=== PATIENT | male | born 1970 | race Caucasian/White ===

== ENCOUNTER 2020-12-01 15:23 | Emergency (ER) | payer MEDICARE, MEDICAID ==
[~2020-12-01] VITALS: Ht 172.7 cm; Wt 64.2 kg
--- OUTSIDE RECORDS SUMMARY | 2020-12-01 15:31 | XMS REPORT | Clinical Summary ---
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 If you d o not see the information that you expected, contact Release of Information in [facility] [email or web address] Information Management department at [phone] for further assistan ce in locating additional records.[facility] Allergies Comments Active Allergy Reactions Severity Noted Date Ketorolac HEADACHE Low 09/18/2020 Medications End Date Status Medication Sig Dispensed Refills Start Date Active clonazePAM (KLONOPIN) 0.5 Take 1 Tab by 10 Tab 5 mg tablet mouth at 7 bedtime as needed. Active Problems Not on file Encounters Care Team Description Date Type Specialty Rolly Varma MD 10/17/2020 Hospital Radiology Encounter Rolly Varma MD 10/17/2020 Hospital Anesthesia Pain Encounter 10/17/2020 Travel Rolly Varma MD Canceled (Patient-Personal) 10/03/2020 Hospital Anesthesia Pain Encounter Rolly Varma MD Care Coordination 10/03/2020 Telephone Anesthesia Pain Evi Kirby MD 09/18/2020 Hospital Radiology Encounter Evi Kirby MD Cervical disc herniation (Primary Dx) 09/18/2020 Office Visit Neurosurgery Evi Kirby MD General Question 09/18/2020 Telephone Neurosurgery 09/18/2020 Travel Evi Kirby MD Referral (Question for patient- is he pl anning on having an appointment with Neurosurgery or Anesthesia Pain Dr? Also, ask if bringing CD of images) 09/13/2020 Telephone Neurosurgery Evi Kirby MD Disease of spinal cord (HCC) (Primary Dx ) 09/12/2020 Orders Only Neurosurgery from Last 3 Months Immunizations Name Administration Dates Next Due Surgical History Surgery Date Site/Laterality Comments KNEE ARTHROCENTESIS Medical History Medical History Date Comments Essential hypertension, benign GERD (gastroesophageal reflux disease) Family History Medical History Relation Name Comments Heart Failure Father Heart Attack Mother Heart problem Mother Hypertension Mother Relation Name Status Comments Brother Other Father Mother Sister Other Social History Date Tobacco Use Types Packs/Day Years Used Quit: 10/26/2009 Former Smoker Smokeless Tobacco: Current User Comments Alcohol Use Standard Drinks/Week Yes 0 (1 standard drink = 0.6 o z pure alcohol) Sex Assigned at Date Recorded Male 09/17/2020 7:32 AM CDT Last Filed Vital Signs Reading Time Taken Comments Vital Sign 121/97 10/17/2020 11:37 AM CDT Blood Pressure 69 09/18/2020 11:16 AM CDT Pulse 36.3 C (97.3 F) 10/17/2020 10:59 AM CDT Temperature 16 09/18/2020 11:16 AM CDT Respiratory Rate 99% 10/17/2020 11:37 AM CDT Oxygen Saturation - - Inhaled Oxygen Concentration 69.7 kg (153 lb 9.6 oz) 10/17/2020 10:59 AM CDT Weight 172.7 cm (5' 8") 10/17/2020 10:59 AM CDT Height 23.35 10/17/2020 10:59 AM CDT Body Mass Index Plan of Treatment Health Maintenance Due Date Last Done Comments MEDICARE ANNUAL WELLNESS 1970 VISIT HIV SCREENING 1985 DTAP/TDAP VACCINES (1 - 1988 Tdap) HEPATITIS C SCREENING 1988 PHYSICAL (COMPREHENSIVE) 1988 EXAM COLORECTAL CANCER 2020 SCREENING SHINGLES RECOMBINANT 2020 12/19/2019 VACCINE (2 of 2) INFLUENZA VACCINE 12/13/2020 12/19/2019, 12/26/2018 COVID-19 VACCINE Completed 07/19/2020, 06/21/2020 Procedures Comments Procedure Name Priority Date/Time Associated Diag nosis FLUORO GUIDANCE FOR SPINE Routine 10/17/2020 INJ RAD 11:35 AM CDT [facility] SPINE INJECT Routine 10/17/2020 Cervical d isc herniation SNRB/TFESI 10:45 AM CDT CERVICAL/THORACIC SCOLIOSIS EOS WHOLEBODY Routine 09/18/2020 Diseas e of spinal cord 11:11 AM CDT ([facility]) from Last 3 Months Results * FLUORO GUIDANCE FOR SPINE INJ RAD (10/17/2020 11:35 AM CDT) Specimen Narrative Performed At This order has been auto finalized and does not conta in a result. [facility] Performing Organization Address City/State/ZIP Code [place] Number [facility] * [facility] SPINE INJECT SNRB/TFESI CERVICAL/THORACIC (10/17/2020 10:45 AM CDT) Narrative Performed At Rolly Varma MD 10/17/2020 12:39 PM OTHER OUTSIDE LAB [facility] SPINE INJECT SNRB/TFESI CERVICAL /THORACIC Procedure: epidural - interlaminar Laterality: n/a on 10/17/2020 11:23 AM Location: cervical [place] with imaging - C 7-T1 Consent: Consent obtained: verbal and written Consent given by: patient Risks discussed: allergic reaction, ble eding, infection, nerve damage and seizure (Headache) Alternatives discussed: no treatment Discussed with patient the purpose of t he treatment/procedure, other ways of treating my condition, including no treatment/ procedure and the risks and benefits of the alternatives. Clarence nt has decided to proceed with treatment/procedure. [place] Protocol: Relevant documents: relevant documents present and verified Test results: test results available an d properly labeled Imaging studies: imaging studies availa ble Required items: required blood products , implants, devices, and special equipment available Site marked: the operative site was lane marco a Patient identity confirmed: Patient jacqueline ntify confirmed verbally with patient. Time out: Immediately prior to procedur e a "time out" was called to verify the correct patient, procedure, equipme nt, support associate and site/side marked as required Procedures Details: Indications: pain Prep: chlorhexidine Patient position: prone Estimated Blood Loss: minimal Specimens: none Amount Injected: C7-T1: 4mL Number of Joints: 1 Approach: midline Guidance: fluoroscopy Contrast: Procedure confirmed with cont rast under live fluoroscopy. Needle and Epidural Catheter: tuohy Needle size: 18 G Injection procedure: Incremental inject ion, Negative aspiration for blood and Introduced needle Patient tolerance: Patient tolerated th e procedure well with no immediate complications. Pressure was applied, an d hemostasis was accomplished. Outcome: Pain unchanged Comments: INTERVENTIONAL PAIN MANAGEMEN T PROCEDURE REPORT Cervical Epidural Steroid Injection Date of Service: 10/17/20 Procedure Title(s): 1. C7-T1 epidural injection 2. Intraoperative fluoroscopy Attending: Rolly Varma MD Anesthesia: Local anesthetic Indications: Oscar Esquivel is a 49 y.o. male with a diagnosis of Cervical radiculopathy. The patient's h istory and physical exam were reviewed. The risks, benefits and alter natives to the procedure were discussed, and all questions were answe red to the patient's satisfaction. The patient agreed to proceed, and writ ten informed consent was obtained. Procedure in Detail: IV was started? No The patient was brought into the proced ure room and placed in the prone position on the fluoroscopy table. Hunter dard monitors were placed, and vital signs were observed throughout th e procedure. The area of the Cervical spine was prepped with 2% chlo rhexidine and draped in a sterile manner. The C7-T1 interspace was identified and marked under AP fluoroscopy. The skin and subcutaneous tissues in the ar ea were anesthetized with 1% lidocaine. An 18-gauge Tuohy epidural n eedle was directed toward the interspace under fluoroscopic guidance until the ligamentum flavum was engaged. From this point, using lateral and oblique fluoroscopic guidance, a loss of resistance technique with a g lass syringe and saline/air was used to identify entrance of the needle into the epidural space. Once an appropriate loss of resistance was obta ined, negative aspiration was confirmed and 0.5-1ml of contrast solut ion was injected. An appropriate epidurogram was noted on AP and lateral fluoroscopy with no vascular or intrathecal uptake. Then, after negative aspiration, a solu tion containing 80 mg of kenalog and 2-3 mL of preservative-free saline was easily injected. The needle was removed with a saline flush. The patien t s back was cleaned and a bandage was placed over the site of needle inse rtion. Disposition: The patient tolerated the procedure well, and there were no apparent complications. Vital signs rem ained stable througtout the procedure. The patient was taken to the recovery area where discharge instructions for the procedure were giv en. Estimated Blood Loss: Minimal Specimens: None Complications: None Performing Organization Address City/State/ZIP Code [place] OTHER OUTSIDE LAB * SCOLIOSIS EOS WHOLEBODY (09/18/2020 11:11 AM CDT) Specimen Impressions Performed At Findings/impression: [facility] RESULTS 2 images are obtained. There is bennie h the right thoracolumbar curvature without measurable scoliosis. There is neutral coronal and sagittal balance. There is no spondylolisthesis. There is mild disc degeneration at C5-C 6. There is mild diffuse thoracic disc degeneration. There is mild multilevel lumbar marginal osteophytosis without disc space narrowing or vertebral body height loss. There is heterogeneous sclerosis in the left femoral head, suggesting avascular necrosis. Small bone infarcts are prese nt in the distal left femur. There is heterogeneous lucency and scle rosis involving the distal right tibia. Two radiographic views of the right low er extremity are recommended for further evaluation. There is no gross limb length discrepan cy. #FOLLOW Findings were discussed with Dr. Rebekah champagne by Dr. De Anda by electronic message at 12:02 PM 09/18/2020. Finalized by Eh De Anda M.D. on 09/18 12:03 PM. Dictated by Eh De Anda M.D. on 09/18/2020 11:58 AM. Narrative Performed At Exam: SCOLIOSIS EOS WHOLEBODY [facility] RESULTS History: Disease of spinal cord, Neuros urgery consult Comparison: MRI cervical spine 08/16/2020 . Procedure Note Interface, Radiant Results - 09/18/2020 12:06 PM CDT Exam: SCOLIOSIS EOS WHOLEBODY History: Disease of spinal cord, Neurosurgery consult Comparison: MRI cervical spine 08/16/2020. IMPRESSION Findings/impression: 2 images are obtained. There is smooth the right thoracolumbar curvature without measurable scoliosis. There is neutral coronal and sagittal balance. There is no spondylolisthesis. There is mild disc degeneration at C5-C6. There is mild diffuse thoracic disc degeneration. There is mild multilevel lumbar marginal osteophytosis without disc space narrowing or vertebral body height loss. There is heterogeneous sclerosis in the left femoral head, suggesting avascular necrosis. Small bone infarcts are present in the distal left femur. There is heterogeneous lucency and sclerosis involving the distal right tibia. Two radiographic views of the right lower extremity are recommended for further evaluation. There is no gross limb length discrepancy. #FOLLOW Findings were discussed with Dr. Kirby by Dr. De Anda by electronic message at 12:02 PM 09/18/2020. Finalized by Eh De Anda M.D. on 09/18/2020 12:03 PM. Dictated by Eh De Anda M.D. on 09/18/2020 11:58 AM. Performing Organization Address City/State/ZIP Code [place] Number [facility] RESULTS from Last 3 Months Insurance Type Payer Benefit Subscriber ID Effective Phone Address Plan / Dates Group Medicare MEDICARE MEDICARE [id number] 2003- PART A [place] Present B [place] [id number] 2016-P MED[place]ID [id number] Advance Directives Patient Procurement Intern Explanation Type Date Recorded Advance 06/10/2016 5:34 AM Directive/DPOA
--- OUTSIDE RECORDS SUMMARY | 2020-12-01 15:31 | XMS REPORT | Encounter Summary ---
Author Author [facility] Organization [facility] Address Unknown Phone Unavailable Care Team Providers Care Record Cutter Name Role Phone Radha Wasserman RN Unavailable Unavailable Dayanara Fontenot RN Unavailable Unavailable Shyam Ruvalcaba APRN PCP Reason for Visit * Pain Authorization (Routine) Referred By Contact Referred To Contact Status Reason Specialty Diagnoses / Procedures Evi Kirby MD [address] [place] [address] [facility] [address] [place] [address] Authorized Diagnoses Cervical disc herniation P rocedures KU AMB SPINE INJECT SNRB/TFESI CERVICAL/THORACIC Encounter Details Care Team Description Date Type Department Rolly Varma MD [address] [place] [address] [phone] 10/17/2020 Hospital Pre/Post-Operative Care: Encounter [facility] [place] [address] [place] [address] Social History Date Tobacco Use Types Packs/Day Years Used Quit: 10/26/2009 Former Smoker Smokeless Tobacco: Current User Comments Alcohol Use Standard Drinks/Week Yes 0 (1 standard drink = 0.6 o z pure alcohol) Sex Assigned at Date Recorded Male 09/17/2020 7:32 AM CDT Date Recorded COVID-19 Exposure Response 10/17/2020 10:29 AM CDT In the last month, have you been in contact with No / Unsure someone who was confirmed or suspected to have Coronavirus / COVID-19? documented as of this encounter Last Filed Vital Signs Reading Time Taken Comments Vital Sign 121/97 10/17/2020 11:37 AM CDT Blood Pressure - - Pulse 36.3 C (97.3 F) 10/17/2020 10:59 AM CDT Temperature - - Respiratory Rate 99% 10/17/2020 11:37 AM CDT Oxygen Saturation - - Inhaled Oxygen Concentration 69.7 kg (153 lb 9.6 oz) 10/17/2020 10:59 AM CDT Weight 172.7 cm (5' 8") 10/17/2020 10:59 AM CDT Height 23.35 10/17/2020 10:59 AM CDT Body Mass Index documented in this encounter Functional Status Date of Assessment Functional Status Response 06/09/2016 Does the patient have a hearing impairment: No documented as of this encounter Discharge Instructions * Instructions* Son Burrows RN - 10/17/2020 10:45 AM CDT GENERAL POST PROCEDURE INSTRUCTIONS Physician: Procedure Completed Today: o Joint Injection (hip, knee, shoulder) o Cervical Epidural Steroid Injection o Cervical Transforaminal Steroid Injection o Trigger Point Injection o Caudal Epidural Steroid Injection o Pudendal Nerve Block o Other o Thoracic Epidural Steroid Injection o Lumbar Epidural Steroid Injection o Lumbar Transforaminal Steroid Injection o Facet Joint Injection o Celiac Nerve Block o Sacrococcygeal o Sacroiliac Joint Injection Important information following your procedure today: o You may drive today o If you had sedation, you may NOT drive today - Rest at home for the next 6 hours. You may then begin to resume your normal a ctivities. - DO NOT drive any vehicle, operate any power tools, drink alcohol, make any tate or decisions, or sign any legal documents for the next 12 hours. 1. Pain relief may not be immediate. It is possible you may even experience an i ncrease in pain during the first 24-48 hours followed by a gradual decrease of y our pain. 2. Though the procedure is generally safe, and complications are rare, we do ask that you be aware of any of the following: Any swelling, persistent redness, new bleeding or drainage from the site of the injection. You should not experience a severe headache. You should not run a fever over 101oF. New onset of sharp, severe back and or neck pain. New onset of upper or lower extremity numbness or weakness. New difficulty controlling bowel or bladder function after injection. New shortness of breath. If any of these occur, please call to report this occurrence to a nurse at [phone]. If you are calling after 4:00 p.m. or on weekends or holidays, jeremy jacobson call [phone] and ask to have the resident physician international broadcast music librarian for the physi gretta paged or go to your local emergency room. 3. You may experience soreness at the injection site. Ice can be applied at 20-m inute intervals for the first 24 hours. The following day you may alternate ice with heat if you are experiencing muscle tightness, otherwise continue with ice. Ice works best at decreasing pain. Avoid application of direct heat, hot showers or hot tubs today. 4. Avoid strenuous activity today. You many resume your regular activities and e xercise tomorrow. 5. Patients with diabetes may see an elevation in blood sugars for 7-10 days aft er the injection. It is important to pay close attention to your diet, check you r blood sugars daily and report extreme elevations to the physician that manages your diabetes. 6. Patients taking daily blood thinners can resume their regular dose this eveni ng. 7. It is important that you take all medications ordered by your pain physician. Taking medications as ordered is an important part of your pain care plan. If y ou cannot continue the medication plan, please notify the physician. Possible side effects to steroids that may occur: Flushing or redness of the face Irritability Fluid retention Change in women's menses Minor headache If you are unable to keep your upcoming appointment, please notify the [facility] automatic driller and reamer at [phone] at least 24 hours in advance. If you have question s for the surgery center, call [facility] at . documented in this encounter Medications at Time of Discharge Start Date End Date Medication Sig Dispensed Refills 06/10/2016 clonazePAM (KLONOPIN) 0.5 Take 1 Tab by 10 Tab 5 mg tablet mouth at bedtime as needed. documented as of this encounter Discharge Disposition Code Departure Means Destination Disposition Home Home or Self Care documented in this encounter Progress Notes * Rolly Varma MD - 10/17/2020 10:45 AM CDT SPINE CENTER INTERVENTIONAL PAIN PROCEDURE HISTORY AND PHYSICAL Cc: Neck pain HISTORY OF PRESENT ILLNESS: Patient presents today with neck pain and is here f or DEREK. Patient denies any new medical conditions or medications. Patient sta tyson they have been off of anticoagulants and antiplatelets as instructed during clinic visit. Patient denies any recent illnesses, infections, and is off of an tibiotics Medical History: Diagnosis Date Essential hypertension, benign GERD (gastroesophageal reflux disease) Surgical History: Procedure Laterality Date KNEE ARTHROCENTESIS family history includes Heart Attack in his mother; Heart Failure in his father; Heart problem in his mother; Hypertension in his mother. Social History Socioeconomic History Marital status: Spouse name: Not on file Number of children: Not on file Years of education: Not on file Highest education level: Not on file Occupational History Not on file Tobacco Use Smoking status: Former Smoker Quit date: 10/26/2009 Years since quittin.9 Smokeless tobacco: Current User Substance and Sexual Activity Alcohol use: Yes Drug use: No Sexual activity: Not on file Other Topics Concern Not on file Social History Narrative Not on file Allergies Allergen Reactions Ketorolac HEADACHE Vitals: 10/17/20 1059 BP: 114/73 BP Source: Arm, Left Upper Temp: 36.3 C (97.3 F) SpO2: 97% Weight: 69.7 kg (153 lb 9.6 oz) Height: 172.7 cm (68") REVIEW OF SYSTEMS: 14 point ROS obtained and negative except for those noted in HPI. PHYSICAL EXAM: General: Alert, cooperative, no distress Head: Normocephalic, atraumatic Eyes: Conjunctivae/corneas clear Lungs: Unlabored respirations Heart: Normal rate by palpation of pulse Abdomen: Non-distended Skin: Warm and dry to touch Psychiatric: Mood and affect normal Musculoskeletal: Moves all extremities Neurological: Grossly intact. IMPRESSION: 1. Cervical radiculopathy PLAN: Discussed risks and complications of Cervical TFESI and CORINNA. At end of discussi on, patient would like to proceed with CORINNA. Plan to proceed with C7-T1 DEREK Rolly Varma MD Department of Anesthesiology and Pain Medicine [facility] Personal Pager [phone] documented in this encounter Procedure Notes * Rolly Varma MD - 10/17/2020 10:45 AM CDT Associated Order(s): KU AMB SPINE INJECT SNRB/TFESI CERVICAL/THORACIC Pre-Procedure Diagnose(s): Cervical disc herniation KU AMB SPINE INJECT SNRB/TFESI CERVICAL/THORACIC Procedure: epidural - interlaminar Laterality: n/a on 10/17/2020 11:23 AM Location: cervical CORINNA with imaging - C7-T1 Consent: Consent obtained: verbal and written Consent given by: patient Risks discussed: allergic reaction, bleeding, infection, nerve damage and seizur e (Headache) Alternatives discussed: no treatment Discussed with patient the purpose of the treatment/procedure, other ways of kosta ating my condition, including no treatment/ procedure and the risks and benefits of the alternatives. Patient has decided to proceed with treatment/procedure. [place] Protocol: Relevant documents: relevant documents present and verified Test results: test results available and properly labeled Imaging studies: imaging studies available Required items: required blood products, implants, devices, and special equipmen t available Site marked: the operative site was marked Patient identity confirmed: Patient identify confirmed verbally with patient. Time out: Immediately prior to procedure a "time out" was called to verify the c orrect patient, procedure, equipment, whanau support worker and site/side marked as requ ired Procedures Details: Indications: pain Prep: chlorhexidine Patient position: prone Estimated Blood Loss: minimal Specimens: none Amount Injected: C7-T1: 4mL Number of Joints: 1 Approach: midline Guidance: fluoroscopy Contrast: Procedure confirmed with contrast under live fluoroscopy. Needle and Epidural Catheter: tuohy Needle size: 18 G Injection procedure: Incremental injection, Negative aspiration for blood and In troduced needle Patient tolerance: Patient tolerated the procedure well with no immediate compli cations. Pressure was applied, and hemostasis was accomplished. Outcome: Pain unchanged Comments: INTERVENTIONAL PAIN MANAGEMENT PROCEDURE REPORT Cervical Epidural Steroid Injection Date of Service: 10/17/20 Procedure Title(s): 1. C7-T1 epidural injection 2. Intraoperative fluoroscopy Attending: Rolly Varma MD Anesthesia: Local anesthetic Indications: Oscar Esquivel is a 49 y.o. male with a diagnosis of Cervical r adiculopathy. The patient's history and physical exam were reviewed. The risks, benefits and alternatives to the procedure were discussed, and all questions wer e answered to the patient's satisfaction. The patient agreed to proceed, and wri tten informed consent was obtained. Procedure in Detail: IV was started? No The patient was brought into the procedure room and placed in the prone position on the fluoroscopy table. Standard monitors were placed, and vital signs were o bserved throughout the procedure. The area of the Cervical spine was prepped wit h 2% chlorhexidine and draped in a sterile manner. The C7-T1 interspace was identified and marked under AP fluoroscopy. The skin an d subcutaneous tissues in the area were anesthetized with 1% lidocaine. An 18-ga uge Tuohy epidural needle was directed toward the interspace under fluoroscopic guidance until the ligamentum flavum was engaged. From this point, using lateral and oblique fluoroscopic guidance, a loss of resistance technique with a glass syringe and saline/air was used to identify entrance of the needle into the epid ural space. Once an appropriate loss of resistance was obtained, negative aspir ation was confirmed and 0.5-1ml of contrast solution was injected. An appropriat e epidurogram was noted on AP and lateral fluoroscopy with no vascular or intrat hecal uptake. Then, after negative aspiration, a solution containing 80 mg of kenalog and 2-3 mL of preservative-free saline was easily injected. The needle was removed with a saline flush. The patients back was cleaned and a bandage was placed over t he site of needle insertion. Disposition: The patient tolerated the procedure well, and there were no apparen t complications. Vital signs remained stable througtout the procedure. The patie nt was taken to the recovery area where discharge instructions for the procedure were given. Estimated Blood Loss: Minimal Specimens: None Complications: None documented in this encounter Plan of Treatment Not on filedocumented as of this encounter Procedures Comments Procedure Name Priority Date/Time Associated Diag nosis KU AMB SPINE INJECT Routine 10/17/2020 Cervical d isc herniation SNRB/TFESI 10:45 AM CDT CERVICAL/THORACIC documented in this encounter Visit Diagnoses Diagnosis Cervical radiculopathy - Primary Brachial neuritis or radiculitis nos documented in this encounter Orders First Ordered Date Medications Ordered That Might Not Have Count Last Ordered Date Been Administered iohexoL (OMNIPAQUE-300) 300 mg/mL 1 07/2020 injection 2 mL lidocaine PF 1% (10 mg/mL) injection 2 1 10/17/2020 mL triamcinolone acetonide (KENALOG-40) 1 0 10/17/2020 injection 80 mg documented in this encounter Additional Health Concerns Assessment Noted Time A fall risk assessment has been completed for the pat ient 09/18/2020 11:23 AM CDT PHQ-2 Depression Total Score: 0 09/18/2020 11:23 AM CDT documented as of this encounter
--- OUTSIDE RECORDS SUMMARY | 2020-12-01 15:31 | XMS REPORT | Encounter Summary ---
Author Author [facility] Organization [facility] Address Unknown Phone Unavailable Care Team Providers Care Custom Home Installer Name Role Phone Radha Wasserman RN Unavailable Unavailable Dayanara Fontenot RN Unavailable Unavailable Shyam Ruvalcaba APRN PCP Encounter Details Care Team Description Date Type Department 10/17/2020 Travel Social History Date Tobacco Use Types Packs/Day [...] / COVID-19? documented as of this encounter Functional Status Date of Assessment Functional Status Response 06/09/2016 Does the patient have a hearing impairment: No documented as of this encounter Plan of Treatment Not on filedocumented as of this encounter Visit Diagnoses Not on filedocumented in this encounter Additional Health Concerns Assessment Noted Time A fall risk assessment has been completed for the pat ient 09/18/2020 11:23 AM CDT PHQ-2 Depression Total Score: 0 09/18/2020 11:23 AM CDT documented as of this encounter
--- OUTSIDE RECORDS SUMMARY | 2020-12-01 15:31 | XMS REPORT | Encounter Summary ---
Author Author [facility] Organization [facility] Address Unknown Phone Unavailable Care Team Providers Care Feed House Supervisor Name Role Phone Radha Wasserman RN Unavailable Unavailable Dayanara Fontenot RN Unavailable Unavailable Shyam Ruvalcaba APRN PCP Reason for Visit * Reason Onset Date Comments Care Coordination 10/03/2020 Encounter Details Care Team Description Date Type Department Rolly Varma MD [address] [place] [address] [phone] Care Coordination 10/03/2020 Telephone Comp Spine Ctr Intervent'nl Pain: [facility]: [address] [place] [address] Social History Date Tobacco Use Types Packs/Day Years Used Quit: 10/26/2009 Former Smoker Smokeless Tobacco: Current User Comments Alcohol Use Standard Drinks/Week Yes 0 (1 standard drink = 0.6 o z pure alcohol) Sex Assigned at Date Recorded Male 09/17/2020 7:32 AM CDT Date Recorded COVID-19 Exposure Response 09/18/2020 10:51 AM CDT In the last month, have you been in contact with No / Unsure someone who was confirmed or suspected to have Coronavirus / COVID-19? documented as of this encounter Functional Status Date of Assessment Functional Status Response 06/09/2016 Does the patient have a hearing impairment: No documented as of this encounter Miscellaneous Notes * Telephone Encounter - Alecia Alcaraz RN - 10/03/2020 3:23 PM CDT Patient was planned for procedure at 10:30am today VM from patient's caregiver at 10:54am today stating that she had a in the family and she spaced about when patient is not supposed to eat or drink anythi ng 6hrs prior and he had water and toast and PB&J Per chart review patient has already been rescheduled for 10/17/2020 documented in this encounter Plan of Treatment [...]
--- OUTSIDE RECORDS SUMMARY | 2020-12-01 15:31 | XMS REPORT | Encounter Summary ---
Author Author [facility] Organization [facility] Address Unknown Phone Unavailable Care Team Providers Care College Basketball Coach Name Role Phone Radha Wasserman RN Unavailable Unavailable Dayanara Fontenot RN Unavailable Unavailable Shyam Ruvalcaba APRN PCP Reason for Visit * Pain Authorization (Routine) Referred By Contact Referred To Contact Status Reason Specialty Diagnoses / Procedures Evi Kirby MD [address] [place] [address] [facility] [address] [place] [address] Authorized Diagnoses Cervical disc herniation P rocedures KU AMB SPINE INJECT SNRB/TFESI CERVICAL/THORACIC Encounter Details Care Team Description Date Type Department Rolly Varma MD [address] [place], [place] [id number] Canceled (Patient-Personal) 10/03/2020 Hospital Pre/Post-Operative Care: Encounter [facility] [address] [place] [address] Social History Date Tobacco Use [...] of this encounter Discharge Instructions * Instructions* Myranda Tay RN - 10/03/2020 10:30 AM CDT GENERAL POST PROCEDURE INSTRUCTIONS Physician: [...] report this occurrence to a nurse at . If you are calling after 4:00 p.m. or on weekends or holidays, jeremy jacobson call [phone] and ask to have the resident physician rag production worker for the physi gretta paged or go [...] thinners can resume their regular dose this lopez escalona. 7. It is important that you take [...] appointment, please notify the [facility] artillery or naval gunfire observer at [phone] at least 24 hours in advance. If you have question s for the surgery center, call [facility] at . documented in this encounter Medications at Time of Discharge Start Date End Date Medication Sig Dispensed Refills 06/10/2016 clonazePAM (KLONOPIN) 0.5 Take 1 Tab by 10 Tab 5 mg tablet mouth at bedtime as needed. documented as of this encounter Discharge Disposition Code Departure Means Destination Disposition Home Home or Self Care documented in this encounter Plan of Treatment Not on filedocumented as of this encounter Procedures Comments Procedure Name Priority Date/Time Associated Diag nosis JOSEPHINE ZACARIAS SPINE INJECT Routine 10/17/2020 Cervical d isc herniation SNRB/TFESI 10:45 AM CDT CERVICAL/THORACIC documented in this encounter Results * KU AMB SPINE INJECT SNRB/TFESI CERVICAL/THORACIC [...] the risks and benefits of the alternatives. Patie nt has decided to proceed with treatment/procedure. [place] Protocol: Relevant documents: relevant documents present and verified Test results: test results available an d properly labeled Imaging studies: imaging studies availa ble Required items: required blood products , implants, devices, and special equipment available Site marked: the operative site was [facility] Patient identity confirmed: Patient jacqueline ntify confirmed verbally with patient. Time out: Immediately prior to procedur e a "time out" was called to verify the correct patient, procedure, equipme nt, technical support internship and site/side marked as required Procedures Details: [...] Code P melonie Number OTHER OUTSIDE LAB documented in this encounter Visit Diagnoses Not on filedocumented in this encounter Additional Health Concerns Assessment Noted Time A fall risk assessment has been completed for the pat ient 09/18/2020 11:23 AM CDT PHQ-2 Depression Total Score: 0 09/18/2020 11:23 AM CDT documented as of this encounter
--- OUTSIDE RECORDS SUMMARY | 2020-12-01 15:31 | XMS REPORT | Encounter Summary ---
Author Author [facility] Organization [facility] Address Unknown Phone Unavailable Care Team Providers Care Manager Of Pharmacy Name Role Phone Radha Wasserman RN Unavailable Unavailable Dayanara Fontenot RN Unavailable Unavailable Shyam Ruvalcaba APRN PCP Reason for Referral * Radiology Services (Routine) Referred By Contact Referred To Contact Status Reason Specialty Diagnoses / Procedures Rolly Varma MD [address] [place] [address] New Request Radiology Procedures FLUORO GUIDANCE FOR SPINE INJ RAD Electronically signed by Rolly Varma MD at Reason for Visit * Radiology Services (Routine) Referred By Contact Referred To Contact Status Reason Specialty Diagnoses / Procedures Rolly Varma MD [address] [place] [address] New Request Radiology Procedures FLUORO GUIDANCE FOR SPINE INJ RAD Encounter Details Care Team Description Date Type Department Rolly Varma MD [address] [place] [address] [phone] 10/17/2020 Hospital Imaging: Cre ek, Encounter [facility] [address] [place] [phone] Social History Date Tobacco Use Types Packs/Day [...] impairment: No documented as of this encounter Medications at Time of Discharge [...] Routine 10/17/2020 INJ RAD 11:35 AM CDT documented in this encounter Results * FLUORO GUIDANCE FOR SPINE INJ RAD (10/17/2020 11:35 AM CDT) Specimen Narrative Performed At This order has been auto finalized and does not conta in a result. HARJINDER GARCIA Performing Organization Address City/State/ZIP Code P melonie Number HARJINDER GARCIA documented in this encounter Visit Diagnoses Not on filedocumented in this encounter Additional Health Concerns Assessment Noted Time A fall risk assessment has been completed for the pat ient 09/18/2020 11:23 AM CDT PHQ-2 Depression Total Score: 0 09/18/2020 11:23 AM CDT documented as of this encounter
[2020-12-01] MEDS ORDERED: ONDANSETRON 4 MG (ZOFRAN) ORAL DISSOLVE TAB PO STA (16:35)
[2020-12-01] MEDS ORDERED: DICYCLOMINE 10 MG/ML (BENTYL) 2 ML AMP IM STA (16:35)
[2020-12-01] MEDS ORDERED: DICY20TA10 PO (16:41)
[2020-12-01] MEDS ORDERED: ONDA4TAB11 PO (16:41)
--- NOTE | 2020-12-01 16:41 | ED GI ---
General Chief Complaint: Abdominal/GI Problems Stated Complaint: ABD PAIN Nursing Triage Note: PATIENT PRESENTS TO THE ED WITH C/O ABDOMINAL CRAMPING/PAIN AND DIARRHEA. PATIENT REPORTS SEVERE ABDOMINAL CRAMPING TODAY FOR APPROXIMATELY THE LAST 1 HOUR. HE STATES HE ATE SOME BAD CELERY YESTERDAY (UNAWARE IT HAD GONE BAD) AND HAD DIARRHEA ALL NIGHT. TODAY HE REPORTS THAT HE ATE SOME MORE CELERY BUT HAD CUT OFF THE SPOILED PART AND 1 HOUR LATER HIS ABDOMINAL CRAMPING/PAIN BEGAN. DENIES DIARRHEA TODAY. Source of Information: Patient History of Present Illness Date Seen by Provider: Dec 01, 2020 Time Seen by Provider: 16:04 Initial Comments 50-year-old male presenting with complaints of abdominal cramping and diarrhea since yesterday. Last night he had a salad and used some celery but had cut off the ends that he thought were spoiled. An hour or so after eating that he started having abdominal cramping and had diarrhea persistently throughout the night. This morning he ate more of the celery and then started having cramping and pain again. He then realized that the swelling was bad and that was causing his symptoms. When he looked up food poisoning he realized that that was what was happening for him. His girlfriend had given him some Pedialyte which seemed to be helping with his stomach. He has had no vomiting but did have some nausea. He is not having diarrhea today like he was last night. After arrival in the ED his symptoms were improved and he was not having as much abdominal cramping and pain. Severity/Quality: Severe, Cramping Location: Generalized Abdomen Modifying Factors: Improves With Eating Associated Symptoms: No Back Pain, No Chest Pain, No Diaphoresis, No Fever/Chills, No Headache; Nausea/Vomiting (Some nausea but no vomiting); No Shortness of Air, No Swelling/Mass in Abdomen, No Syncope, No Weakness Allergies and Home Medications Allergies Coded Allergies: No Known Drug Allergies (Unverified , 12/01/20) Patient Home Medication List Home Medication List Reviewed: Yes Dicyclomine HCl (Dicyclomine HCl) 20 Mg Tablet, 20 MG PO QID PRN for abdominal pain/cramping Prescribed by: JOHNNY CONNELL on 12/01/20 8120 Ondansetron (Ondansetron Odt) 4 Mg Tab.rapdis, 4 MG PO Q6H PRN for NAUSEA/VOMITING Prescribed by: JOHNNY CONNELL on 12/01/20 1641 Review of Systems Review of Systems Constitutional: see HPI EENTM: No Symptoms Reported Respiratory: No Symptoms Reported Cardiovascular: No Symptoms Reported Gastrointestinal: See HPI Genitourinary: No Symptoms Reported Musculoskeletal: no symptoms reported Skin: No rash Psychiatric/Neurological: Denies Headache Past Fadlzek-Oqafrt-Frcuvk Hx Patient Social History Tobacco Use?: No Use of E-Cig and/or Vaping dev: No Substance use?: Yes Substance type: Marijuana Additional substance use comme: LAST USED 2-3 WEEKS AGO Substance frequency: Once in a while Alcohol Use?: No Pt feels they are or have been: No Immunizations Up To Date First/Initial COVID19 Vaccinat: JULY 2020 Second COVID19 Vaccination Nick: JULY 2020 COVID19 Vaccine Pharmaceutical Scientist: MAGGIE Physical Exam Vital Signs Vital Signs - First Documented 12/01/20 15:35 Temp 36.9 Pulse 84 Resp 16 B/P (MAP) 144/98 (113) Pulse Ox 98 O2 Delivery Room Air Capillary Refill : Less Than 3 Seconds Height/Weight/BMI Height: '" Weight: lbs. oz. kg; 21.00 BMI Method: General Appearance: WD/WN, no apparent distress HEENT: pharynx normal Neck: non-tender, full range of motion, supple, normal inspection Respiratory: chest non-tender, lungs clear, normal breath sounds Cardiovascular: normal peripheral pulses, regular rate, rhythm Gastrointestinal: soft, no pulsatile mass, abnormal bowel sounds (Hyperactive bowel sounds); No distended, No guarding, No rebound; tenderness (Mild diffuse tenderness to palpation) Rectal: deferred Neurologic/Psychiatric: alert, oriented x 3 Skin: normal color, warm/dry Images 1 - Mild diffuse tenderness to palpation with hyperactive bowel sounds Progress/Results/Core Measures Results/Orders My Orders Orders - JOHNNY CONNELL MD Dicyclomine Injection (Bentyl Injection) (12/01/20 16:35) Ondansetron Oral Dissolve Tab (Zofran (12/01/20 16:35) Vital Signs/I&O 12/01/20 12/01/20 15:35 16:53 Temp 36.9 36.9 Pulse 84 84 Resp 16 16 B/P (MAP) 144/98 (113) 144/98 Pulse Ox 98 98 O2 Delivery Room Air Room Air Blood Pressure Mean: 113 Progress Progress Note : Progress Note Reassured patient that his exam and vital signs stable. He did not appear to be dehydrated or that he would have to get IV fluids. Will try Zofran and Bentyl to help with the symptoms. Continue with Pedialyte or electrolyte drinks in addition to water. Follow a bland or liquid diet for the next 24 to 48 hours. Throw away the remaining celery, if he has any of the rotten celery left. Check back with clinic for continued concerns Departure Impression Primary Impression: Food poisoning Additional Impressions: Diarrhea Qualified Codes: R19.7 - Diarrhea, unspecified Abdominal cramping Disposition: HOME, SELF-CARE Condition: Stable Departure-Patient Inst. Decision time for Depature: 16:37 Referrals: NO,LOCAL PHYSICIAN (PCP) Primary Care Physician [facility] [place] Patient Instructions: Food Poisoning ED, Diarrhea, Adult ED Add. Discharge Instructions: Stay well hydrated and drink water and electrolyte drinks to help with hydration. Use the nausea medicine and medicine for abdominal cramping and pain to help with your symptoms. If you are having vomiting or diarrhea to the point that you can not keep up with hydration and are getting dizzy and light headed then return or seek medical care for further evaluation. All discharge instructions reviewed with patient and/or family. Voiced understanding. Scripts Dicyclomine HCl (Dicyclomine HCl) 20 Mg Tablet 20 MG PO QID PRN for abdominal pain/cramping for 3 Days, #12 TAB 0 Refills Prov: JOHNNY CONNELL MD 12/01/20 Ondansetron (Ondansetron Odt) 4 Mg Tab.rapdis 4 MG PO Q6H PRN for NAUSEA/VOMITING for 3 Days, #12 TAB 0 Refills Prov: JOHNNY CONNELL MD 12/01/20 JOHNNY CONNELL MD Dec 01, 2020 16:41
[2020-12-01 16:53] VITALS: BP 144/98
== END 2020-12-01 16:45 | disposition home or self-care (01) ==
LOC: ER FS 15:29
DX: A05.9 Bacterial foodborne intoxication, unspecified (principal)
CPT/HCPCS: 99284

== ENCOUNTER 2021-02-10 10:27 | Emergency (ER) | payer MEDICARE, MEDICAID ==
[~2021-02-10] VITALS: Ht 172 cm; Wt 68.0 kg
[~2021-02-10 10:27] MED LIST: DICY20TA PO; ONDA4TAB11 PO
--- NOTE | 2021-02-10 10:30 | ED Chest Pain ---
General Stated Complaint: CHEST PAIN Source: patient Exam Limitations: no limitations History of Present Illness Date Seen by Provider: Feb 10, 2021 Time Seen by Provider: 10:28 Initial Comments 50yoM with PMH of GERD coming in due to chest pain. Started a couple weeks ago. Happens most nights after dinner and laying down. Lasts a couple hours at a time before it goes away. Is a burning at times and pressure at other times. Has been on omeprazole for years. Had a GI upper scope 6 days ago which was diagnosed with esophagitis. No medication changes at that time. Pain started again last night in the middle the night and is continuing. Is moderate, constant, burning. No difficulty breathing, fever, cough, abdominal pain, nausea, v omiting, diarrhea, weakness, numbness, or any other concerns. No prior history of pulmonary embolism. No recent surgeries under general anesthesia. Allergies and Home Medications Allergies Coded Allergies: No Known Drug Allergies (Unverified , 12/01/20) Patient Home Medication List Home Medication List Reviewed: Yes Dicyclomine HCl (Dicyclomine HCl) 20 Mg Tablet, 20 MG PO QID PRN for abdominal pain/cramping Prescribed by: JOHNNY CONNELL on 12/01/20 1641 Ondansetron (Ondansetron Odt) 4 Mg Tab.rapdis, 4 MG PO Q6H PRN for NAUSEA/VOMITING Prescribed by: JOHNNY CONNELL on 12/01/20 1641 Review of Systems Review of Systems Constitutional: No chills EENTM: No Blurred Vision Respiratory: Denies Cough Cardiovascular: Chest Pain Gastrointestinal: Denies Abdominal Pain, Denies Diarrhea, Denies Nausea Genitourinary: Denies Burning Musculoskeletal: No back pain Skin: no symptoms reported Psychiatric/Neurological: No Symptoms Reported Endocrine: No Symptoms Reported Hematologic/Lymphatic: No Symptoms Reported All Other Systems Reviewed Negative Unless Noted: Yes Past Xekarxz-Drtqit-Ymxunf Hx Patient Social History Tobacco Use?: No Smoking Status: Former Smoker Use of E-Cig and/or Vaping dev: No Substance use?: No Immunizations Up To Date First/Initial COVID19 Vaccinat: JULY 2020 Second COVID19 Vaccination Nick: JULY 2020 Past Medical History Surgeries: Yes Orthopedic Physical Exam Vital Signs Vital Signs - First Documented 02/10/21 10:42 Temp 35.9 Pulse 79 Resp 20 B/P (MAP) 126/74 (91) Pulse Ox 97 O2 Delivery Room Air Capillary Refill : Height, Weight, BMI Height: '" Weight: lbs. oz. kg; 21.00 BMI Method: General Appearance: No Apparent Distress, WD/WN HEENT: PERRL/EOMI, Normal ENT Inspection, Pharynx Normal Neck: Full Range of Motion, Normal Inspection, Non Tender, Supple Respiratory: Chest Non Tender, Lungs Clear, Normal Breath Sounds, No Accessory Muscle Use, No Respiratory Distress Cardiovascular: Regular Rate, Rhythm, No Edema, Normal Peripheral Pulses Gastrointestinal: Normal Bowel Sounds, Non Tender, Soft; No Distended, No G uarding Extremity: Normal Capillary Refill, Normal Inspection, Normal Range of Motion, Non Tender, No Calf Tenderness, No Pedal Edema Neurologic/Psychiatric: Alert, No Motor/Sensory Deficits, Normal Mood/Affect Skin: Normal Color, Warm/Dry Lymphatic: No Adenopathy Progress/Results/Core Measures Results/Orders Lab Results Laboratory Tests Test 02/10/21 10:45 Range/Units White Blood Count 10.8 4.3-11.0 10^3/uL Red Blood Count 4.84 4.30-5.52 10^6/uL Hemoglobin 15.2 13.3-17.7 g/dL Hematocrit 43 40-54 % Mean Corpuscular Volume 89 80-99 fL Mean Corpuscular Hemoglobin 31 25-34 pg Mean Corpuscular Hemoglobin Concent 35 32-36 g/dL Red Cell Distribution Width 12.3 10.0-14.5 % Platelet Count 287 130-400 10^3/uL Mean Platelet Volume 10.7 9.0-12.2 fL Neutrophils (%) (Auto) 75 42-75 % Lymphocytes (%) (Auto) 17 12-44 % Monocytes (%) (Auto) 7 0-12 % Eosinophils (%) (Auto) 1 0-10 % Basophils (%) (Auto) 0 0-10 % Neutrophils # (Auto) 8.0 H 1.8-7.8 X 10^3 Lymphocytes # (Auto) 1.9 1.0-4.0 X 10^3 Monocytes # (Auto) 0.8 0.0-1.0 X 10^3 Eosinophils # (Auto) 0.1 0.0-0.3 10^3/uL Basophils # (Auto) 0.0 0.0-0.1 10^3/uL D-Dimer < 0.27 0.00-0.49 UG/ML Sodium Level 140 135-145 MMOL/L Potassium Level 3.6 3.6-5.0 MMOL/L Chloride Level 105 98-107 MMOL/L Carbon Dioxide Level 25 21-32 MMOL/L Anion Gap 10 5-14 MMOL/L Blood Urea Nitrogen 6 L 7-18 MG/DL Creatinine 0.85 0.60-1.30 MG/DL Estimat Glomerular Filtration Rate 95 BUN/Creatinine Ratio 7 Glucose Level 107 H 70-105 MG/DL Calcium Level 9.4 8.5-10.1 MG/DL Corrected Calcium 8.5-10.1 MG/DL Total Bilirubin 1.1 H 0.1-1.0 MG/DL Aspartate Amino Transf (AST/SGOT) 22 5-34 U/L Alanine Aminotransferase (ALT/SGPT) 7 0-55 U/L Alkaline Phosphatase 68 40-136 U/L Troponin I < 0.30 <0.30 NG/ML Total Protein 7.4 6.4-8.2 GM/DL Albumin 4.6 H 3.2-4.5 GM/DL My Orders Orders - FLORY GARNICA MD Cbc With Automated Diff (02/10/21 10:39) Chest 1 View Ap/Pa Only (02/10/21 10:39) Ekg Tracing (02/10/21 10:39) Comprehensive Metabolic Panel (02/10/21 10:39) Monitor-Rhythm Ecg Trace Only (02/10/21 10:39) Ed Iv/Invasive Line Start (02/10/21 10:39) Troponin I Fs (02/10/21 10:39) Lidocaine 2% Viscous 15 Ml (Xylocaine Vi (02/10/21 10:45) Antacid Suspension (Mylanta Suspension (02/10/21 10:45) Fibrin Degradation Products (02/10/21 11:24) Medications Given in ED Current Medications Medications Dose Ordered Sig/Janina Route Start Time Stop Time Status Last Admin Dose Admin Al Hydrox/Mg Hydrox/Simethicone 30 ml ONCE ONCE PO 02/10/21 10:45 02/10/21 10:46 DC 02/10/21 10:57 30 ML Lidocaine HCl 15 ml ONCE ONCE PO 02/10/21 10:45 02/10/21 10:46 DC 02/10/21 10:57 15 ML Vital Signs/I&O 02/10/21 10:42 Temp 35.9 Pulse 79 Resp 20 B/P (MAP) 126/74 (91) Pulse Ox 97 O2 Delivery Room Air Progress Progress Note : Progress Note 50-year-old male with above history coming in due to central chest burning pain. ABCs were intact and vitals were stable on presentation. Physical exam reassuring with no focal abnormalities including normal distal pulses that are equal, normal neuro exam, and no clinical signs of a DVT. EKG ordered and interpreted by me without any acute ST changes, no prior EKG to compare to, he is also sinus rhythm with a rate of 80. Chest x-ray ordered and interpreted by me showing a pleural effusion on the right that is mild, no infiltrate concerning for pneumonia, no pneumothorax, normal cardiac silhouette, no free air under the diaphragm. Labs significant for negative troponin, undetectable D-dimer, normal creatinine, normal electrolytes essentially. I discussed with the patient the pleural effusion is unusual, but we do not have any prior to compare to. I recommended given it is mild with normal vitals that he should follow-up with his primary care doctor and have a repeat chest x-ray to ensure it is improving. They can also decide how much they want a work-up the cause of the pleural effusion. Overall this seems to be more benign cause of chest discomfort, and clinically it does sound like esophagitis given this was just diagnosed, and the symptoms of burning especially when laying down at night. I believe he is stable for discharge. He was sent home with strict return precautions Initial ECG Impression Date: Feb 10, 2021 Initial ECG Impression Time: 10:27 Initial ECG Rate: 80 Initial ECG Rhythm: Normal Sinus Comment Narrow QRS, normal axis, no significant ST changes, T wave flattening in the high lateral leads with no prior EKG to compare to Diagnostic Imaging Diagonstic Imaging: Xray Plain Films/CT/US/NM/MRI: chest Comments [facility], [facility]. [place], [place] NAME: JONATHAN BARRAZA [facility] REC#: [id number] PT STATUS: REG ER : 1970 PHYSICIAN: FLORY GARNICA MD ADMIT DATE: 02/10/21/ER FS Signed Date of Exam:02/10/21 CHEST 1 VIEW AP/PA ONLY EXAMINATION: Chest 1 view HISTORY: chest pain, recent GI scope COMPARISON: None available. FINDINGS: Heart size and pulmonary vasculature are normal. There is a right pleural effusion. No consolidation or pneumothorax. The osseous structures are intact. IMPRESSION: 1. Findings suggestive of a right pleural effusion versus asymmetric elevation of the right hemidiaphragm. No other acute radiographic abnormality in the chest. Dictated by: Dictated on workstation # [id number] Dict: 02/10/21 1052 Trans: 02/10/21 105 AS6 [id number] Interpreted by: JAMIL PATRICK DO Electronically signed by: JAMIL PATRICK DO 02/10/211057 Departure Impression Primary Impression: Pleural effusion Additional Impressions: Chest pain Qualified Codes: R07.9 - Chest pain, unspecified Esophagitis Disposition: HOME, SELF-CARE Condition: Stable Departure-Patient Inst. Decision time for Depature: 12:11 Referrals: VICTOR HUGO CAVANAUGH APRN (PCP/Family) Primary Care Physician Patient Instructions: Pleural Effusion (DC), Chest Pain (DC) Add. Discharge Instructions: You were seen in the emergency department for chest pain. It does not appear like you are having a heart attack or any type of blood clot based on your labs and imaging. You do have fluid on the right side of your lung base called a pleural effusion. It looks mild, but I do want you to follow-up with your primary care doctor to get a repeat x-ray within the next couple weeks to be sure it is not increasing in size. They may want to do a work-up to also help figure out what is causing this. I doubt this is what is causing your symptoms, and your symptoms are most likely caused from the esophagitis that you have. If you begin feeling more short of breath persistently that is not going away despite hours, then I would want you to come back to the ER or call your doctor. I did write a prescription for pantoprazole, which is a stronger version of omeprazole. Stop taking the omeprazole when you begin taking this. Scripts Pantoprazole Sodium (Protonix) 40 Mg Tablet. 40 MG PO DAILY for 30 Days, #30 TAB 2 Refills Prov: FLORY GARNICA MD 02/10/21 FLORY GARNICA MD Feb 10, 2021 10:30
--- OUTSIDE RECORDS SUMMARY | 2021-02-10 10:31 | XMS REPORT | Clinical Summary ---
Author Author [facility] Organization [facility] Address Unknown Phone Unavailable Care Team Providers Care Ordnance Truck Installation Supervisor Name Role Phone Radha Wasserman RN Unavailable Unavailable Dayanara Fontenot RN Unavailable Unavailable Shyam Ruvalcaba APRN PCP Source Comments Some departments are not documenting in the electronic medical record. If you d o not see the information that you expected, contact Release of Information in [facility] Information Management department at [phone] for further assistan ce in locating additional records.[facility] Allergies Comments Active Allergy Reactions Severity Noted Date Ketorolac HEADACHE Low 09/18/2020 Medications End Date Status Medication Sig Dispensed Refills Start Date Active clonazePAM (KLONOPIN) 0.5 Take 1 Tab by 10 Tab 5 mg tablet mouth at 7 bedtime as needed. Active Problems Not on file Immunizations Name Administration Dates Next Due Surgical [...] C SCREENING 1988 PHYSICAL (COMPREHENSIVE) 1988 EXAM INFLUENZA VACCINE 10/13/2020 12/19/2019, 12/26/2018 COLORECTAL CANCER 2020 SCREENING SHINGLES RECOMBINANT 2020 12/19/2019 VACCINE (2 of 2) COVID-19 VACCINE (3 - 01/19/2021 07/19/2020, Booster for Moderna 06/21/2020 series) Results Not on filefrom Last 3 Months Insurance Type Payer Benefit Subscriber ID Effective Phone Address Plan / Dates Group Medicare MEDICARE MEDICARE [id number] 2003- [phone] [address] AND Present [address] [place] [address] [place] [id number] 2016-P [phone] [address] MEDICAID [id number] [place] [address] [id number] 6 Advance Directives Patient Vat Operator Explanation Type Date Recorded Advance 06/10/2016 5:34 AM Directive/DPOA Care Teams Start Date End Date Ordnance Truck Installation Supervisor Relationship Specialty 09/18/20 Shyam Ruvalcaba P, TEXTILE SCREEN MAKER PCP - General Nurse [address] [place] [id number] 10/27/11 Radha Wasserman RN 10/29/11 Dayanara Fontenot RN
[2021-02-10] MEDS ORDERED: LIDOCAINE 2% VISCOUS 15 ML UDC PO ONE (10:45)
[2021-02-10] MEDS ORDERED: ANTACID SUSP 30 ML UDC (MYLANTA) PO ONE (10:45)
--- NOTE | 2021-02-10 10:56 | Diagnostic Imaging Report ---
EXAMINATION: Chest 1 view HISTORY: chest pain, recent GI scope COMPARISON: None available. FINDINGS: Heart size and pulmonary vasculature are normal. There is a right pleural effusion. No consolidation or pneumothorax. The osseous structures are intact. IMPRESSION: 1. Findings suggestive of a right pleural effusion versus asymmetric elevation of the right hemidiaphragm. No other acute radiographic abnormality in the chest. Dictated by: Dictated on workstation # [id number]
[2021-02-10 11:15] LABS: HEMATOCRIT 43 % (40-54); HEMOGLOBIN 15.2 g/dL (13.3-17.7); MEAN CORPUSCULAR HEMOGLOBIN 31 pg (25-34); MEAN CORPUSCULAR HGB CONC 35 g/dL (32-36); MEAN CORPUSCULAR VOLUME 89 fL (80-99); PLATELET COUNT 287 10^3/uL (130-400); WHITE BLOOD COUNT 10.8 10^3/uL (4.3-11.0)
[2021-02-10 11:16] LABS: BASOPHILS % (AUTO) 0 % (0-10); EOSINOPHILS # (AUTO) 0.1 10^3/uL (0.0-0.3); EOSINOPHILS % (AUTO) 1 % (0-10); LYMPHOCYTES # (AUTO) 1.9 X 10^3 (1.0-4.0); LYMPHOCYTES % (AUTO) 17 % (12-44); MEAN PLATELET VOLUME 10.7 fL (9.0-12.2); MONOCYTES # (AUTO) 0.8 X 10^3 (0.0-1.0); MONOCYTES % (AUTO) 7 % (0-12); NEUTROPHILS % (AUTO) 75 % (42-75)
[2021-02-10 11:33] LABS: CHLORIDE 105 MMOL/L (98-107); POTASSIUM 3.6 MMOL/L (3.6-5.0); SODIUM 140 MMOL/L (135-145)
[2021-02-10 11:34] LABS: ALANINE AMINOTRANSFERASE 7 U/L (0-55); ALBUMIN 4.6 GM/DL (3.2-4.5); ALKALINE PHOSPHATASE 68 U/L (40-136); BILIRUBIN,TOTAL 1.1 MG/DL (0.1-1.0); BUN/CREATININE RATIO 7; CALCIUM 9.4 MG/DL (8.5-10.1); CARBON DIOXIDE 25 MMOL/L (21-32); CREATININE SERUM 0.85 MG/DL (0.60-1.30); GFR ESTIMATED 95; GLUCOSE 107 MG/DL (70-105); TOTAL PROTEIN 7.4 GM/DL (6.4-8.2)
[2021-02-10] MEDS ORDERED: PANT40TA2 PO (12:13)
[2021-02-10 12:14] VITALS: BP 141/81
== END 2021-02-10 12:18 | disposition home or self-care (01) ==
LOC: EDUNIT# 10:27 → ER FS 10:28
DX: J90 Pleural effusion, not elsewhere classified (principal); R07.9 Chest pain, unspecified; K20.90 Esophagitis, unspecified without bleeding; Z87.891 Personal history of nicotine dependence
CPT/HCPCS: 36415; 71045; 80053; 84484; 85025; 85379; 93005; 93041

== ENCOUNTER → 2021-04-01 | Outpatient (CLI) | payer MEDICARE, MEDICAID ==
[~2021-04-01] MED LIST changes: +CATHETER FLUSH 10 ML SYR IV PRN; +HOLD METFORMIN - RECEIVED CONTRAST 20 ML VIAL IV SCH; +IOHEXOL 350 MG/ML 150 ML (OMNIPAQUE 350) VIAL IV ONE; +NS 100 ML (IVPB) BAG IV ONE; +PANT40TA2 PO
[2021-04-01 12:07] LABS: ALANINE AMINOTRANSFERASE 11 U/L (0-55); ALBUMIN 4.6 GM/DL (3.2-4.5); ALKALINE PHOSPHATASE 66 U/L (40-136); BILIRUBIN,TOTAL 1.7 MG/DL (0.1-1.0); BUN/CREATININE RATIO 14; CALCIUM 9.5 MG/DL (8.5-10.1); CARBON DIOXIDE 27 MMOL/L (21-32); CHLORIDE 104 MMOL/L (98-107); CREATININE SERUM 0.88 MG/DL (0.60-1.30); GFR ESTIMATED 105; GLUCOSE 85 MG/DL (70-105); POTASSIUM 3.9 MMOL/L (3.6-5.0); SODIUM 141 MMOL/L (135-145); TOTAL PROTEIN 7.8 GM/DL (6.4-8.2)
--- NOTE | 2021-04-01 13:46 | Diagnostic Imaging Report ---
EXAMINATION: CT chest with intravenous contrast. TECHNIQUE: Multiple contiguous axial images were obtained through the chest after the uneventful administration of intravenous contrast. All CT scans use one or more of the following dose optimizing techniques: automated exposure control, MA and/or KvP adjustment based on patient size and exam type or iterative reconstruction. HISTORY: Short of breath COMPARISON: None available. FINDINGS: There is no edema or pneumonia. No pleural effusion. No pneumothorax. No suspicious nodules. There is no axillary or supraclavicular lymphadenopathy. There is no mediastinal lymphadenopathy. Heart size is normal. There are mild coronary artery calcifications. No pericardial effusion. Aorta is normal in caliber. Limited views of the upper abdomen are unremarkable. There are no suspicious osseus lesions. IMPRESSION: 1. No acute abnormality in the chest. Dictated by: Dictated on workstation # [id number]
== END ==
LOC: RT 10:45
PROVIDERS: ATTEND Nurse Practitioner Family
DX: J94.8 Other specified pleural conditions (principal)
CPT/HCPCS: 36415; 71260; 80053

== ENCOUNTER 2021-06-18 12:09 | Emergency (ER) | payer MEDICARE, MEDICAID ==
[~2021-06-18] VITALS: Ht 172 cm; Wt 65.0 kg
[~2021-06-18 12:09] MED LIST changes: -CATHETER FLUSH 10 ML SYR IV PRN; -HOLD METFORMIN - RECEIVED CONTRAST 20 ML VIAL IV SCH; -IOHEXOL 350 MG/ML 150 ML (OMNIPAQUE 350) VIAL IV ONE; -NS 100 ML (IVPB) BAG IV ONE
[2021-06-18 12:36] VITALS: BP 113/84
--- NOTE | 2021-06-18 13:02 | ED General ---
General Chief Complaint: Psych/Social Disorder Stated Complaint: ANXIETY; ARRHYTHMIA Nursing Triage Note: Patient has presented to ER with cc of anxiety that is getting worse. Patient reports that he has had anxiety all of his life and it is getting much worse the past several weeks. Patient reports that he was started on buspar 1 week ago but it has not helped. He feels like he is having a panic attack. Source of Information: Patient Exam Limitations: No Limitations History of Present Illness Date Seen by Provider: Jun 18, 2021 Time Seen by Provider: 12:12 Initial Comments 50yoM with PMH of GERD, anxiety, and psoriatic arthritis coming in due to worsening anxiety over the past week. Started on Buspar 7 days ago by his PCP and it hasn't worked yet. He is having SOB/rapid breathing, and chest pressure. He is having conflicts with his neighbors which is making it worse. Denies light headed, dizzy, n/v/d, abd pain, weakness, numbness, or any other concerns. Of note, I saw the patient in January for similar presentation. He had a normal cardiac work-up including negative D-dimer. He had a GI scope upper done in January and was diagnosed with esophagitis, has been taking pantoprazole Allergies and Home Medications Allergies Coded Allergies: No Known Drug Allergies (Unverified , 12/01/20) Patient Home Medication List Home Medication List Reviewed: Yes Dicyclomine HCl (Dicyclomine HCl) 20 Mg Tablet, 20 MG PO QID PRN for abdominal pain/cramping Prescribed by: JOHNNY CONNELL on 12/01/20 1641 Hydroxyzine HCl (Hydroxyzine HCl) 25 Mg Tablet, 25 MG PO BID Prescribed by: FLORY GARNICA on 06/18/21 1356 Ondansetron (Ondansetron Odt) 4 Mg Tab.rapdis, 4 MG PO Q6H PRN for NAUSEA/VOMITING Prescribed by: JOHNNY CONNELL on 12/01/20 1641 Pantoprazole Sodium (Protonix) 40 Mg Tablet.dr, 40 MG PO DAILY Prescribed by: FLORY GARNICA on 02/10/21 1213 Review of Systems Review of Systems Constitutional: No chills, No fever EENTM: No blurred vision Respiratory: No cough Cardiovascular: chest pain Gastrointestinal: No abdominal pain Genitourinary: no symptoms reported Musculoskeletal: no symptoms reported Skin: no symptoms reported Psychiatric/Neurological: Anxiety Hematologic/Lymphatic: No Symptoms Reported Immunological/Allergic: no symptoms reported All Other Systems Reviewed Negative Unless Noted: Yes Past Dehqurh-Eukdov-Zdxwtn Hx Patient Social History Tobacco Use?: No Tobacco type used: Cigarettes Smoking Status: Former Smoker Use of E-Cig and/or Vaping dev: No Substance use?: No Alcohol Use?: No Immunizations Up To Date First/Initial COVID19 Vaccinat: JULY 2020 Second COVID19 Vaccination Nick: JULY 2020 Past Medical History Surgeries: Yes Orthopedic Physical Exam Vital Signs Vital Signs - First Documented 06/18/21 12:36 Temp 36.4 Pulse 80 Resp 18 B/P (MAP) 113/84 (94) Pulse Ox 97 Capillary Refill : Height, Weight, BMI Height: '" Weight: lbs. oz. kg; 21.00 BMI Method: General Appearance: No Apparent Distress Eyes: Bilateral Eye Normal Inspection HEENT: PERRL/EOMI, Normal ENT Inspection, Pharynx Normal Neck: Full Range of Motion, Normal Inspection, Non Tender, Supple Respiratory: Chest Non Tender, Lungs Clear, Normal Breath Sounds, No Accessory Muscle Use, No Respiratory Distress Cardiovascular: Regular Rate, Rhythm, No Edema, Normal Peripheral Pulses Gastrointestinal: Normal Bowel Sounds, Non Tender, Soft; No Distended, No Guarding Back: Normal Inspection, No CVA Tenderness, No Vertebral Tenderness Extremity: Normal Capillary Refill, Normal Inspection, Normal Range of Motion, Non Tender, No Calf Tenderness Neurologic/Psychiatric: Alert, No Motor/Sensory Deficits, Normal Mood/Affect Skin: Normal Color, Warm/Dry Lymphatic: No Adenopathy Progress/Results/Core Measures Suspected Sepsis SIRS Temperature: Pulse: 80 Respiratory Rate: 18 Laboratory Tests 06/18/21 13:24: White Blood Count 11.0 Blood Pressure 113 /84 Mean: 94 Laboratory Tests 06/18/21 13:24: Creatinine 0.84, INR Comment 1.0, Platelet Count 297, Total Bilirubin 1.1H Results/Orders Lab Results Laboratory Tests Test 06/18/21 13:24 Range/Units White Blood Count 11.0 4.3-11.0 10^3/uL Red Blood Count 5.08 4.30-5.52 10^6/uL Hemoglobin 15.5 13.3-17.7 g/dL Hematocrit 44 40-54 % Mean Corpuscular Volume 86 80-99 fL Mean Corpuscular Hemoglobin 31 25-34 pg Mean Corpuscular Hemoglobin Concent 36 32-36 g/dL Red Cell Distribution Width 11.9 10.0-14.5 % Platelet Count 297 130-400 10^3/uL Mean Platelet Volume 10.4 9.0-12.2 fL Immature Granulocyte % (Auto) 0 % Neutrophils (%) (Auto) 70 42-75 % Lymphocytes (%) (Auto) 22 12-44 % Monocytes (%) (Auto) 7 0-12 % Eosinophils (%) (Auto) 1 0-10 % Basophils (%) (Auto) 0 0-10 % Neutrophils # (Auto) 7.7 1.8-7.8 10^3/uL Lymphocytes # (Auto) 2.4 1.0-4.0 10^3/uL Monocytes # (Auto) 0.8 0.0-1.0 10^3/uL Eosinophils # (Auto) 0.1 0.0-0.3 10^3/uL Basophils # (Auto) 0.0 0.0-0.1 10^3/uL Immature Granulocyte # (Auto) 0.0 0.0-0.1 10^3/uL Prothrombin Time 13.5 12.2-14.7 SEC INR Comment 1.0 0.8-1.4 Activated Partial Thromboplast Time 30 24-35 SEC Sodium Level 141 135-145 MMOL/L Potassium Level 3.9 3.6-5.0 MMOL/L Chloride Level 106 98-107 MMOL/L Carbon Dioxide Level 24 21-32 MMOL/L Anion Gap 11 5-14 MMOL/L Blood Urea Nitrogen 8 7-18 MG/DL Creatinine 0.84 0.60-1.30 MG/DL Estimat Glomerular Filtration Rate 106 BUN/Creatinine Ratio 10 Glucose Level 118 H 70-105 MG/DL Calcium Level 9.5 8.5-10.1 MG/DL Corrected Calcium 8.5-10.1 MG/DL Magnesium Level 2.1 1.6-2.4 MG/DL Total Bilirubin 1.1 H 0.1-1.0 MG/DL Aspartate Amino Transf (AST/SGOT) 17 5-34 U/L Alanine Aminotransferase (ALT/SGPT) 12 0-55 U/L Alkaline Phosphatase 66 40-136 U/L Troponin I < 0.30 <0.30 NG/ML Pro-B-Type Natriuretic Peptide 65.2 <75.0 PG/ML Total Protein 7.4 6.4-8.2 GM/DL Albumin 4.9 H 3.2-4.5 GM/DL My Orders Orders - FLORY GARNICA MD Cbc With Automated Diff (06/18/21 13:02) Magnesium (06/18/21 13:02) Ekg Tracing (06/18/21 13:02) Comprehensive Metabolic Panel (06/18/21 13:02) Protime With Inr (06/18/21 13:02) Partial Thromboplastin Time (06/18/21 13:02) O2 (06/18/21 13:02) Monitor-Rhythm Ecg Trace Only (06/18/21 13:02) Ed Iv/Invasive Line Start (06/18/21 13:02) Troponin I Fs (06/18/21 13:02) Probnp Fs (06/18/21 13:02) Chest Pa/Lat (2 View) (06/18/21 13:02) Hydroxyzine Cap/Tab (Vistaril) (06/18/21 13:15) Lidocaine 2% Viscous 15 Ml (Xylocaine Vi (06/18/21 13:15) Antacid Suspension (Mylanta Suspension (06/18/21 13:15) Famotidine Tablet (Pepcid Tablet) (06/18/21 13:15) Medications Given in ED Current Medications Medications Dose Ordered Sig/Janina Route Start Time Stop Time Status Last Admin Dose Admin Al Hydrox/Mg Hydrox/Simethicone 30 ml ONCE ONCE PO 06/18/21 13:15 06/18/21 13:16 DC 06/18/21 13:15 30 ML Famotidine 20 mg ONCE ONCE PO 06/18/21 13:15 06/18/21 13:16 DC 06/18/21 13:15 20 MG Hydroxyzine Pamoate 25 mg ONCE ONCE PO 06/18/21 13:15 06/18/21 13:16 DC 06/18/21 13:15 25 MG Lidocaine HCl 15 ml ONCE ONCE PO 06/18/21 13:15 06/18/21 13:16 DC 06/18/21 13:15 15 ML Vital Signs/I&O 06/18/21 12:36 Temp 36.4 Pulse 80 Resp 18 B/P (MAP) 113/84 (94) Pulse Ox 97 Capillary Refill : Blood Pressure Mean: 94 Progress Note : Progress Note 50-year-old male with above history coming in due to chest discomfort which he states is anxiety. ABCs were intact and vitals were stable on presentation. Physical exam reassuring with no focal abnormalities. Basic labs including cardiac biomarkers ordered and there is a negative troponin. He is otherwise low risk for a PE and is not tachycardic or hypoxic. Breathing comfortably. Chest x-ray similar to prior with no acute findings. EKG with no acute ischemic changes. [id number] ultrasound obtained by me showing no pericardial effusion and normal ejection fraction. We will give him hydroxyzine to help with what he states is his anxiety while his other medication has time to work. We will have him follow-up with her local delivery driver if things are not improving. He was then discharged home in stable condition with strict return precautions. ECG Initial ECG Impression Date: Jun 18, 2021 Initial ECG Impression Time: 13:39 Initial ECG Rate: 70 Initial ECG Rhythm: Normal Sinus Comment Narrow QRS, normal axis, no significant ST changes or T wave abnormalities, appears similar to prior Diagnostic Imaging Diagonstic Imaging: Xray (chest) Comments [facility]. [place], [place] NAME: JONATHAN BARRAZA [facility] REC#: [id number] PT STATUS: REG ER : 1970 PHYSICIAN: FLORY GARNICA MD ADMIT DATE: 06/18/21/ER FS Draft Date of Exam:06/18/21 CHEST PA/LAT (2 VIEW) INDICATION: Chest pain. PA and lateral chest obtained at 01:12 p.m. and compared to 02/10/2021 FINDINGS: Heart and mediastinal silhouette are normal in appearance. There is some scarring in the right lung base which appears similar to the prior study. There is no new infiltrate or pneumothorax or pleural fluid. IMPRESSION: Chronic scarring right lung base appears similar to the prior study. No new infiltrate or pleural fluid. Dictated on workstation # [id number] Dict: 06/18/21 1316 Trans: 06/18/21 1322 [id number] Interpreted by: LEELEE KAY MD Electronically signed by: Departure Impression Primary Impression: Chest pain Qualified Codes: R07.9 - Chest pain, unspecified Additional Impression: Anxiety Disposition: 01 HOME, SELF-CARE Condition: Stable Departure-Patient Inst. Decision time for Depature: 14:05 Referrals: EL THOMAS APRN (PCP) Primary Care Physician [facility]/ (Family) Primary Care Physician SHAY DONALDSON JR, MD Patient Instructions: Chest Pain, Adult ED, Anxiety, Adult (DC) Add. Discharge Instructions: You can take the hydroxyzine once in the morning and once at night for a couple weeks while your other medication has time to work. Follow-up with your regular doctor if things are not proving. I also want you to follow-up with Dr. Donaldson, a local delivery driver that is in [place] once a week, and otherwise is in [place]. There are test they can do that we are unable to do in the ER. Scripts Hydroxyzine HCl (Hydroxyzine HCl) 25 Mg Tablet 25 MG PO BID for 14 Days, #28 TAB Prov: FLORY GARNICA MD 06/18/21 Work/School Note: Work Release Form Date Seen in the Emergency Department: Jun 18, 2021 Return to Work: Jun 19, 2021 Restrictions: No Restrictions FLORY GARNICA MD Jun 18, 2021 13:02
[2021-06-18] MEDS ORDERED: hydrOXYzine (VISTARIL/ATARAX) 25 MG capsule/tablet PO ONE (13:15)
[2021-06-18] MEDS ORDERED: FAMOTIDINE 20 MG (PEPCID) TABLET PO ONE (13:15)
[2021-06-18] MEDS ORDERED: ASPIRIN 81 MG CHEW (CHILDREN'S ASA) PO ONE (13:15)
[2021-06-18] MEDS ORDERED: LIDOCAINE 2% VISCOUS 15 ML UDC PO ONE (13:15)
[2021-06-18] MEDS ORDERED: ANTACID SUSP 30 ML UDC (MYLANTA) PO ONE (13:15)
--- NOTE | 2021-06-18 13:23 | Diagnostic Imaging Report ---
INDICATION: Chest pain. PA and lateral chest obtained at 01:12 p.m. and compared to 02/10/2021 FINDINGS: Heart and mediastinal silhouette are normal in appearance. There is some scarring in the right lung base which appears similar to the prior study. There is no new infiltrate or pneumothorax or pleural fluid. IMPRESSION: Chronic scarring right lung base appears similar to the prior study. No new infiltrate or pleural fluid. Dictated by: Dictated on workstation # [id number]
[2021-06-18 13:40] LABS: BASOPHILS % (AUTO) 0 % (0-10); EOSINOPHILS # (AUTO) 0.1 10^3/uL (0.0-0.3); EOSINOPHILS % (AUTO) 1 % (0-10); HEMATOCRIT 44 % (40-54); HEMOGLOBIN 15.5 g/dL (13.3-17.7); LYMPHOCYTES # (AUTO) 2.4 10^3/uL (1.0-4.0); LYMPHOCYTES % (AUTO) 22 % (12-44); MEAN CORPUSCULAR HEMOGLOBIN 31 pg (25-34); MEAN CORPUSCULAR HGB CONC 36 g/dL (32-36); MEAN CORPUSCULAR VOLUME 86 fL (80-99); MEAN PLATELET VOLUME 10.4 fL (9.0-12.2); MONOCYTES # (AUTO) 0.8 10^3/uL (0.0-1.0); MONOCYTES % (AUTO) 7 % (0-12); NEUTROPHILS # (AUTO) 7.7 10^3/uL (1.8-7.8); NEUTROPHILS % (AUTO) 70 % (42-75); PLATELET COUNT 297 10^3/uL (130-400)
[2021-06-18 13:50] LABS: PROTHROMBIN TIME PATIENT 13.5 SEC (12.2-14.7)
[2021-06-18] MEDS ORDERED: HYDR-700 PO (13:56)
[2021-06-18 13:58] LABS: ALKALINE PHOSPHATASE 66 U/L (40-136); BILIRUBIN,TOTAL 1.1 MG/DL (0.1-1.0); BUN/CREATININE RATIO 10; CALCIUM 9.5 MG/DL (8.5-10.1); CARBON DIOXIDE 24 MMOL/L (21-32); CHLORIDE 106 MMOL/L (98-107); CREATININE SERUM 0.84 MG/DL (0.60-1.30); GFR ESTIMATED 106; GLUCOSE 118 MG/DL (70-105); MAGNESIUM 2.1 MG/DL (1.6-2.4); POTASSIUM 3.9 MMOL/L (3.6-5.0); SODIUM 141 MMOL/L (135-145)
[2021-06-18 13:59] LABS: ALANINE AMINOTRANSFERASE 12 U/L (0-55); ALBUMIN 4.9 GM/DL (3.2-4.5); TOTAL PROTEIN 7.4 GM/DL (6.4-8.2)
== END 2021-06-18 14:05 | disposition home or self-care (01) ==
LOC: EDUNIT# 12:09 → ER FS 12:11
DX: R07.9 Chest pain, unspecified (principal); F41.9 Anxiety disorder, unspecified; K20.90 Esophagitis, unspecified without bleeding; K21.9 Gastro-esophageal reflux disease without esophagitis; Z87.891 Personal history of nicotine dependence
CPT/HCPCS: 36415; 71046; 80053; 83735; 83880; 84484; 85025; 85610; 85730; 93005

== ENCOUNTER 2021-11-17 13:04 | Emergency (ER) | payer MEDICARE, MEDICAID ==
[~2021-11-17] VITALS: Ht 172 cm; Wt 65.0 kg
[~2021-11-17 13:04] MED LIST changes: +HYDR-700 PO
[2021-11-17 13:14] VITALS: BP 129/72
[2021-11-17] MEDS ORDERED: FAMOTIDINE 20 MG (PEPCID) TABLET PO STA (13:14)
[2021-11-17] MEDS ORDERED: LIDOCAINE 2% VISCOUS 15 ML UDC PO ONE (13:15)
[2021-11-17] MEDS ORDERED: ANTACID SUSP 30 ML UDC (MYLANTA) PO ONE (13:15)
--- NOTE | 2021-11-17 13:28 | ED GI ---
General Chief Complaint: Abdominal/GI Problems Stated Complaint: INDIGESTION; EPIGASTRIC PAIN Nursing Triage Note: Patient complains of heartburn and belching for the 90 minutes, he did take maloxx and he took his protonix this morning. He reports having severe gastris and gerd. Source of Information: Patient Exam Limitations: No Limitations History of Present Illness Date Seen by Provider: Nov 17, 2021 Time Seen by Provider: 13:07 Initial Comments 50yoM with PMH of GERD coming in due to what he states is indigestion. Symptoms have been going on for about 90 minutes with epigastric burning. Similar to prior episodes. He tried sour candy to try to help it, which did not help. He had a sandwich for lunch which did not make things worse. Denies any chest pain, SOA, n/v/d, fever, weakness, numbness, recent long travel, leg swelling or pain, cough/hemoptysis, or any other concerns. No prior DVT or PE. Prior EGDs have been completely with most recent about a year ago. Allergies and Home Medications Allergies Coded Allergies: No Known Drug Allergies (Unverified , 12/01/20) Patient Home Medication List Home Medication List Reviewed: Yes Dicyclomine HCl (Dicyclomine HCl) 20 Mg Tablet, 20 MG PO QID PRN for abdominal p ain/cramping Prescribed by: JOHNNY CONNELL on 12/01/20 1641 Hydroxyzine HCl (Hydroxyzine HCl) 25 Mg Tablet, 25 MG PO BID Prescribed by: FLORY GARNICA on 06/18/21 1356 Ondansetron (Ondansetron Odt) 4 Mg Tab.rapdis, 4 MG PO Q6H PRN for NAUSEA/VOMITING Prescribed by: JOHNNY CONNELL on 12/01/20 1641 Pantoprazole Sodium (Protonix) 40 Mg Tablet.dr, 40 MG PO DAILY Prescribed by: FLORY GARNICA on 02/10/21 1213 Simethicone (Simethicone) 125 Mg Capsule, 125 MG PO Q8H PRN for GAS Prescribed by: FLORY GARNICA on 11/17/21 1350 Sucralfate (Carafate) 1 Gram Tablet, 1 GM PO Q8H Prescribed by: FLORY GARNICA on 9/5/22 1350 Review of Systems Review of Systems Constitutional: No fever EENTM: No Blurred Vision Respiratory: Denies Cough Cardiovascular: Denies Chest Pain Gastrointestinal: Abdominal Pain Genitourinary: No Symptoms Reported Musculoskeletal: no symptoms reported Skin: no symptoms reported Psychiatric/Neurological: No Symptoms Reported Endocrine: No Symptoms Reported Hematologic/Lymphatic: No Symptoms Reported All Other Systems Reviewed Negative Unless Noted: Yes Past Kynpflc-Djdhis-Binzdj Hx Patient Social History Tobacco Use?: No Substance use?: Yes Substance type: Marijuana Alcohol Use?: No Immunizations Up To Date First/Initial COVID19 Vaccinat: JULY 2020 Second COVID19 Vaccination Nick: JULY 2020 Past Medical History Surgeries: Yes Orthopedic Physical Exam Vital Signs Vital Signs - First Documented 11/17/21 13:14 Temp 36.4 Pulse 64 Resp 20 B/P (MAP) 129/72 (91) Pulse Ox 100 Capillary Refill : Height/Weight/BMI Height: '" Weight: lbs. oz. kg; 21.00 BMI Method: General Appearance: WD/WN, no apparent distress HEENT: PERRL/EOMI, normal ENT inspection, pharynx normal Neck: non-tender, full range of motion, supple, normal inspection Respiratory: chest non-tender, lungs clear, normal breath sounds, no respiratory distress, no accessory muscle use Cardiovascular: regular rate, rhythm, no edema, no murmur Gastrointestinal: normal bowel sounds, non tender, soft; No distended, No guarding, No rebound Extremities: normal range of motion, non-tender, normal inspection, no pedal edema, no calf tenderness, normal capillary refill Back: normal inspection, no CVA tenderness Neurologic/Psychiatric: no motor/sensory deficits, alert, normal mood/affect Skin: normal color, warm/dry Lymphatic: no adenopathy Progress/Results/Core Measures Results/Orders My Orders Orders - FLORY GARNICA MD Ekg Tracing (11/17/21 13:14) Lidocaine 2% Viscous 15 Ml (Xylocaine Vi (11/17/21 13:15) Famotidine Tablet (Pepcid Tablet) (11/17/21 13:14) Antacid Suspension (Mylanta Suspension (11/17/21 13:15) Medications Given in ED Current Medications Medications Dose Ordered Sig/Janina Route Start Time Stop Time Status Last Admin Dose Admin Al Hydrox/Mg Hydrox/Simethicone 30 ml ONCE ONCE PO 11/17/21 13:15 11/17/21 13:16 DC 11/17/21 13:27 30 ML Lidocaine HCl 15 ml ONCE ONCE PO 11/17/21 13:15 11/17/21 13:16 DC 11/17/21 13:27 15 ML Vital Signs/I&O 11/17/21 13:14 Temp 36.4 Pulse 64 Resp 20 B/P (MAP) 129/72 (91) Pulse Ox 100 Blood Pressure Mean: 91 Progress Progress Note : Progress Note 50-year-old male with above history coming in due to excessive belching. Personally, this is the third time I have seen him for similar issue. He says this morning he was eating sour candy which normally helps with it, and this time it made it worse. He does take pantoprazole regularly and he says his GERD has been relatively under control. He has had multiple cardiac work-ups for similar symptoms which have all been negative. He was given a GI cocktail here which helped minimally. EKG with no acute ischemic changes and vitals within normal limits. And he is unlikely he has anything life-threatening, and he should follow-up with his PCP as well as GI specialist Initial ECG Impression Date: Nov 17, 2021 Initial ECG Impression Time: 13:14 Initial ECG Rate: 62 Initial ECG Rhythm: Normal Sinus Comment Narrow QRS, normal axis, no significant ST changes, T wave inversion in lead aVL which is similar to prior EKG Departure Impression Primary Impression: Belching symptom Additional Impression: Epigastric discomfort Disposition: HOME, SELF-CARE Condition: Stable Departure-Patient Inst. Decision time for Depature: 13:45 Referrals: EL THOMAS APRN (PCP) Primary Care Physician [facility] (Family) Primary Care Physician Patient Instructions: Gas and Bloating Add. Discharge Instructions: I am unclear the exact cause of the belching, it does not appear like it is anything life-threatening such as heart disease. It is possible is related to your GERD and reflux. You can try the simethicone as well as Carafate to see if this helps on top of the medicines you are already taking. Scripts Sucralfate (Carafate) 1 Gram Tablet 1 GM PO Q8H for 7 Days, #28 TAB Prov: FLORY GARNICA MD 11/17/21 Simethicone (Simethicone) 125 Mg Capsule 125 MG PO Q8H PRN for GAS for 7 Days, #28 CAP Prov: FLORY GARNICA MD 11/17/21 FLORY GARNICA MD Nov 17, 2021 13:28
[2021-11-17] MEDS ORDERED: SIME125C78 PO (13:50)
[2021-11-17] MEDS ORDERED: SUCR1TAB36 PO (13:50)
== END 2021-11-17 13:55 | disposition home or self-care (01) ==
LOC: EDUNIT# 13:04 → ER FS 13:05
DX: R10.13 Epigastric pain (principal); K21.9 Gastro-esophageal reflux disease without esophagitis; Z79.899 Other long term (current) drug therapy
CPT/HCPCS: 93005

== ENCOUNTER 2021-11-22 12:37 | Emergency (ER) | payer MEDICARE, MEDICAID ==
[~2021-11-22] VITALS: Ht 172 cm; Wt 65.0 kg
[~2021-11-22 12:37] MED LIST changes: +SIME125C78 PO; +SUCR1TAB36 PO
[2021-11-22 12:57] VITALS: BP 128/84
--- NOTE | 2021-11-22 12:59 | ED General ---
General Chief Complaint: Bite-Animal/Human/Insect Stated Complaint: CAT BITE RT HAND Source of Information: Patient History of Present Illness Date Seen by Provider: Nov 22, 2021 Time Seen by Provider: 12:59 Initial Comments 51-year-old male presenting with complaints of cat bite to his right forearm and hand. He states that a neighbor's cat is "mangy" and that it lives outside but does belong to a neighbor. The neighbor states that she does have the cat up-to-date on shots. The patient states that he had taken out his trash and as he was walking back to his apartment the cat ran up to him. He was petting the cat and then when he stopped petting his when the cat bit into his arm and clawed him. He was able to get the cat release. He states he Then went over to push and urinated and then was laying down in no distress and watching him after having bit him. He denies fever, chills, severe pain. He did clean the wounds with soap and water immediately after the bite. He states it has been more than 5 years for his last tetanus booster. This happened around 10 AM today Timing/Duration: 1-3 Hours Severity: Mild Modifying Factors: worse with Movement Associated Systoms: No Chest Pain, No Cough, No Diaphoresis, No Fever/Chills, No Headaches, No Loss of Appetite, No Malaise, No Nausea/Vomiting, No Rash, No Seizure, No Shortness of Air, No Syncope, No Weakness Allergies and Home Medications Allergies Coded Allergies: No Known Drug Allergies (Unverified , 12/01/20) Patient Home Medication List Home Medication List Reviewed: Yes Amoxicillin/Potassium Clav (Amox Tr-K Clv 875-125 mg Tab) 875 Mg-125 Mg Tablet, 1 EACH PO BID Prescribed by: JOHNNY CONNELL on 11/22/21 1317 Dicyclomine HCl (Dicyclomine HCl) 20 Mg Tablet, 20 MG PO QID PRN for abdominal pain/cramping Prescribed by: JOHNNY CONNELL on 12/01/20 1641 Hydroxyzine HCl (Hydroxyzine HCl) 25 Mg Tablet, 25 MG PO BID Prescribed by: FLORY GARNICA on 06/18/21 1356 Ondansetron (Ondansetron Odt) 4 Mg Tab.rapdis, 4 MG PO Q6H PRN for NAUSEA/VOMITING Prescribed by: JOHNNY CONNELL on 12/01/20 1641 Pantoprazole Sodium (Protonix) 40 Mg Tablet.dr, 40 MG PO DAILY Prescribed by: FLORY GARNICA on 02/10/21 1213 Simethicone (Simethicone) 125 Mg Capsule, 125 MG PO Q8H PRN for GAS Prescribed by: FLORY GARNICA on 11/17/21 1350 Sucralfate (Carafate) 1 Gram Tablet, 1 GM PO Q8H Prescribed by: FLORY GARNICA on 11/17/21 1350 Review of Systems Review of Systems Constitutional: No chills, No fever EENTM: no symptoms reported Respiratory: no symptoms reported Cardiovascular: no symptoms reported Gastrointestinal: no symptoms reported Genitourinary: no symptoms reported Musculoskeletal: see HPI Skin: see HPI Psychiatric/Neurological: Denies Numbness, Denies Paresthesia Past Mlmmyjp-Ldseuf-Lkaqdj Hx Patient Social History Tobacco Use?: No Use of E-Cig and/or Vaping dev: No Substance use?: Yes Substance type: Marijuana Alcohol Use?: No Immunizations Up To Date First/Initial COVID19 Vaccinat: JULY 2020 Second COVID19 Vaccination Nick: JULY 2020 Past Medical History Surgery/Hospitalization HX: GERD Surgeries: Yes Orthopedic Physical Exam Vital Signs Vital Signs - First Documented 11/22/21 12:57 Temp 36.2 Pulse 72 Resp 16 B/P (MAP) 128/84 (99) Pulse Ox 97 Capillary Refill : Height, Weight, BMI Height: '" Weight: lbs. oz. kg; 21.00 BMI Method: General Appearance: No Apparent Distress, WD/WN Cardiovascular: Regular Rate, Rhythm, Normal Peripheral Pulses Extremity: Normal Capillary Refill, No Pedal Edema, Other (mild tenderness around abrasions and puncture wound of right forearm) Neurologic/Psychiatric: Alert, Oriented x3, No Motor/Sensory Deficits, Normal Mood/Affect, business analysis consultant II-XII Norm as Tested Skin: Warm/Dry, Other (superficial abrasions and puncture wounds to right forearm. no active bleeding or drainage.) Progress/Results/Core Measures Suspected Sepsis SIRS Temperature: Pulse: Respiratory Rate: Blood Pressure / Mean: Results/Orders My Orders Orders - JOHNNY CONNELL MD Dipht,Tyron(Acell),Tet Adult (Boostrix (11/22/21 13:15) Wound Dressing-Ed (11/22/21 13:14) Vital Signs/I&O 11/22/21 12:57 Temp 36.2 Pulse 72 Resp 16 B/P (MAP) 128/84 (99) Pulse Ox 97 Capillary Refill : Progress Note : Progress Note Counseled patient that sounded like a low risk for rabies exposure and since the animal was somewhat of it could be monitored as well as checking with the medical doctor md about vaccinations will defer rabies vaccinations per the patient. Update the tetanus booster. Started on a course of Augmentin to help try and prevent infection from the puncture wounds and bite of the cat. Wounds were cleaned with Betadine and sterile water. Departure Impression Primary Impression: Cat bite of right forearm Qualified Codes: S51.851A - Open bite of right forearm, initial encounter; W55.01XA - Bitten by cat, initial encounter Disposition: HOME, SELF-CARE Condition: Stable Departure-Patient Inst. Decision time for Depature: 13:16 Referrals: EL THOMAS APRN (PCP) Primary Care Physician [facility] (Family) Primary Care Physician Patient Instructions: Animal Bites ED, Wound Care ED Add. Discharge Instructions: Keep wounds clean with soap and water. May apply antibiotic ointment 2 to 3 times a day to help prevent infection. Take the full course of antibiotics to treat for possible infection after cat bite and clawing. All discharge instructions reviewed with patient and/or family. Voiced understanding. Scripts Amoxicillin/Potassium Clav (Amox Tr-K Clv 875-125 mg Tab) 875 Mg-125 Mg Tablet 1 EACH PO BID for cat bite for 7 Days, #14 TAB 0 Refills Prov: JOHNNY CONNELL MD 11/22/21 JOHNNY CONNELL MD Nov 22, 2021 12:59
[2021-11-22] MEDS ORDERED: TETANUS,DIPTH,PERTUSS P/F (BOOSTRIX) 0.5 ML VIAL IM ONE (13:15)
[2021-11-22] MEDS ORDERED: AMOX1TAB12 PO (13:17)
== END 2021-11-22 13:26 | disposition home or self-care (01) ==
LOC: EDUNIT# 12:37 → ER FS 12:39
DX: S51.851A Open bite of right forearm, initial encounter (principal); Z23 Encounter for immunization; Z20.3 Contact with and (suspected) exposure to rabies; W55.01XA Bitten by cat, initial encounter
CPT/HCPCS: 90715; 99281

== ENCOUNTER → 2022-01-20 | Outpatient (CLI) | payer MEDICARE, MEDICAID ==
[~2022-01-20] MED LIST changes: +AMOX1TAB12 PO
== END ==
LOC: CARDFS 12:52
PROVIDERS: ATTEND Internal Medicine Cardiovascular Disease
DX: R94.31 Abnormal electrocardiogram [ECG] [EKG] (principal)
CPT/HCPCS: 93306

== ENCOUNTER 2022-02-12 11:30 | Emergency (ER) | payer MEDICARE, MEDICAID ==
[~2022-02-12] VITALS: Ht 172 cm; Wt 62.0 kg
--- NOTE | 2022-02-12 11:36 | ED Chest Pain ---
General Stated Complaint: CHEST PAIN History of Present Illness Date Seen by Provider: Feb 12, 2022 Time Seen by Provider: 11:31 Initial Comments 51-year-old male presents with left-sided chest discomfort. He reports that it started last night. That it gets worse with deep breaths. The he has a mild cough. Patient admits to daily marijuana smoking. He denies any radiation of the pain of nausea vomiting. Patient reports he was scheduled for stress test today but did not go because he thought it would be faster to come here and have himself evaluated. He reports a recent echo. Allergies and Home Medications Allergies Coded Allergies: No Known Drug Allergies (Unverified , 12/01/20) Patient Home Medication List Home Medication List Reviewed: Yes Amoxicillin/Potassium Clav (Amox Tr-K Clv 875-125 mg Tab) 875 Mg-125 Mg Tablet, 1 EACH PO BID Prescribed by: JOHNNY CONNELL on 11/22/21 1317 Dicyclomine HCl (Dicyclomine HCl) 20 Mg Tablet, 20 MG PO QID PRN for abdominal pain/cramping Prescribed by: JOHNNY CONNELL on 12/01/20 1641 Hydroxyzine HCl (Hydroxyzine HCl) 25 Mg Tablet, 25 MG PO BID Prescribed by: FLORY GARNICA on 06/18/21 1356 Ondansetron (Ondansetron Odt) 4 Mg Tab.rapdis, 4 MG PO Q6H PRN for MUSTAPHA SEA/VOMITING Prescribed by: JOHNNY CONNELL on 12/01/20 1641 Pantoprazole Sodium (Protonix) 40 Mg Tablet.dr, 40 MG PO DAILY Prescribed by: FLORY GARNICA on 02/10/21 1213 Simethicone (Simethicone) 125 Mg Capsule, 125 MG PO Q8H PRN for GAS Prescribed by: FLORY GARNICA on 11/17/21 1350 Sucralfate (Carafate) 1 Gram Tablet, 1 GM PO Q8H Prescribed by: FLORY GARNICA on 11/17/21 1350 Review of Systems Review of Systems Constitutional: No chills, No fever Respiratory: Cough; Denies Shortness of Air Cardiovascular: Chest Pain (with breathing ); Denies Palpitations Gastrointestinal: No Symptoms Reported Genitourinary: No Symptoms Reported Musculoskeletal: no symptoms reported Psychiatric/Neurological: No Symptoms Reported Physical Exam Vital Signs Vital Signs - First Documented 02/12/22 11:40 Pulse 82 Resp 16 B/P (MAP) 153/91 (111) Pulse Ox 98 O2 Delivery Room Air Capillary Refill : Height, Weight, BMI Height: '" Weight: lbs. oz. 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 Skin: Normal Color, Warm/Dry Progress/Results/Core Measures Results/Orders Lab Results Laboratory Tests Test 02/12/22 11:37 Range/Units White Blood Count 11.0 4.3-11.0 10^3/uL Red Blood Count 5.29 4.30-5.52 10^6/uL Hemoglobin 16.6 13.3-17.7 g/dL Hematocrit 46 40-54 % Mean Corpuscular Volume 87 80-99 fL Mean Corpuscular Hemoglobin 31 25-34 pg Mean Corpuscular Hemoglobin Concent 36 32-36 g/dL Red Cell Distribution Width 12.2 10.0-14.5 % Platelet Count 290 130-400 10^3/uL Mean Platelet Volume 9.7 9.0-12.2 fL Immature Granulocyte % (Auto) 0 % Neutrophils (%) (Auto) 61 42-75 % Lymphocytes (%) (Auto) 26 12-44 % Monocytes (%) (Auto) 7 0-12 % Eosinophils (%) (Auto) 5 0-10 % Basophils (%) (Auto) 0 0-10 % Neutrophils # (Auto) 6.7 1.8-7.8 10^3/uL Lymphocytes # (Auto) 2.9 1.0-4.0 10^3/uL Monocytes # (Auto) 0.7 0.0-1.0 10^3/uL Eosinophils # (Auto) 0.5 H 0.0-0.3 10^3/uL Basophils # (Auto) 0.0 0.0-0.1 10^3/uL Immature Granulocyte # (Auto) 0.0 0.0-0.1 10^3/uL D-Dimer 0.34 0.00-0.49 UG/ML Sodium Level 138 135-145 MMOL/L Potassium Level 3.6 3.6-5.0 MMOL/L Chloride Level 95 L 98-107 MMOL/L Carbon Dioxide Level 26 21-32 MMOL/L Anion Gap 17 H 5-14 MMOL/L Blood Urea Nitrogen 10 7-18 MG/DL Creatinine 0.82 0.60-1.30 MG/DL Estimat Glomerular Filtration Rate 106 BUN/Creatinine Ratio 12 Glucose Level 92 70-105 MG/DL Calcium Level 9.8 8.5-10.1 MG/DL Corrected Calcium 8.5-10.1 MG/DL Magnesium Level 1.9 1.6-2.4 MG/DL Total Bilirubin 2.1 H 0.1-1.0 MG/DL Aspartate Amino Transf (AST/SGOT) 21 5-34 U/L Alanine Aminotransferase (ALT/SGPT) 16 0-55 U/L Alkaline Phosphatase 78 40-136 U/L Troponin I < 0.30 <0.30 NG/ML C-Reactive Protein < 0.30 <0.50 MG/DL Total Protein 8.2 6.4-8.2 GM/DL Albumin 5.2 H 3.2-4.5 GM/DL Smear Scan SLIDE REVIEWED My Orders Orders - NEGRO MCELROY DO Cbc With Automated Diff (02/12/22 11:39) Comprehensive Metabolic Panel (02/12/22 11:39) Fibrin Degradation Products (02/12/22 11:39) Magnesium (02/12/22 11:39) Crp Fs (02/12/22 11:39) Troponin I Fs (02/12/22 11:39) Aspirin Chewable Tablet (Baby Aspirin Ch (02/12/22 11:45) Ekg Tracing (02/12/22 11:39) Monitor-Rhythm Ecg Trace Only (02/12/22 11:39) Chest Pa/Lat (2 View) (02/12/22 11:39) Medications Given in ED Current Medications Medications Dose Ordered Sig/Janina Route Start Time Stop Time Status Last Admin Dose Admin Aspirin 324 mg ONCE ONCE PO 02/12/22 11:45 02/12/22 11:46 DC 02/12/22 11:46 324 MG Vital Signs/I&O 02/12/22 11:40 Pulse 82 Resp 16 B/P (MAP) 153/91 (111) Pulse Ox 98 O2 Delivery Room Air Progress Progress Note : Progress Note Patient with no acute findings on EKG. Patient with negative troponin, negative D-dimer, negative x-rays. Pain worsens with inspiration which is consistent with pleuritic type pain. He also had what sounds like a negative echo recently. Patient's pain started greater than 12 hours ago so second troponin is not indicated. Discussed with him the need to reschedule his stress test. Patient stable and discharged Initial ECG Impression Date: Feb 12, 2022 Initial ECG Impression Time: 11:36 Initial ECG Rate: 71 Initial ECG Rhythm: Normal Sinus Initial ECG Impression: Normal Comment no acute findings Diagnostic Imaging Diagonstic Imaging: Xray Plain Films/CT/US/NM/MRI: chest Comments Date of Exam:02/12/22 CHEST PA/LAT (2 VIEW) Indication: Chest pain PA and lateral chest There is tenting of the right hemidiaphragm. This is unchanged compared to 06/18/2021. Heart size and pulmonary vascularity are normal. There are no infiltrates, effusions or pneumothoraces. IMPRESSION: No acute abnormalities in the chest Departure Impression Primary Impression: Pleuritic chest pain Disposition: HOME, SELF-CARE Condition: Stable Departure-Patient Inst. Patient Instructions: Chest Pain That Is Not Caused by the Heart (DC), Pleuritic Chest Pain ED Add. Discharge Instructions: Please follow-up with your primary care provider and reschedule your stress test as soon as possible for further evaluation. Ibuprofen 800 mg every 8 hours as needed for discomfort NEGRO MCELROY DO Feb 12, 2022 11:36
[2022-02-12] MEDS ORDERED: ASPIRIN 81 MG CHEW (CHILDREN'S ASA) PO ONE (11:45)
[2022-02-12 11:52] LABS: BASOPHILS % (AUTO) 0 % (0-10); EOSINOPHILS # (AUTO) 0.5 10^3/uL (0.0-0.3); EOSINOPHILS % (AUTO) 5 % (0-10); HEMATOCRIT 46 % (40-54); HEMOGLOBIN 16.6 g/dL (13.3-17.7); LYMPHOCYTES # (AUTO) 2.9 10^3/uL (1.0-4.0); LYMPHOCYTES % (AUTO) 26 % (12-44); MEAN CORPUSCULAR HEMOGLOBIN 31 pg (25-34); MEAN CORPUSCULAR HGB CONC 36 g/dL (32-36); MEAN CORPUSCULAR VOLUME 87 fL (80-99); MEAN PLATELET VOLUME 9.7 fL (9.0-12.2); MONOCYTES # (AUTO) 0.7 10^3/uL (0.0-1.0); MONOCYTES % (AUTO) 7 % (0-12); NEUTROPHILS # (AUTO) 6.7 10^3/uL (1.8-7.8); NEUTROPHILS % (AUTO) 61 % (42-75); PLATELET COUNT 290 10^3/uL (130-400)
--- NOTE | 2022-02-12 11:56 | Diagnostic Imaging Report ---
Indication: Chest pain PA and lateral chest There is tenting of the right hemidiaphragm. This is unchanged compared to 06/18/2021. Heart size and pulmonary vascularity are normal. There are no infiltrates, effusions or pneumothoraces. IMPRESSION: No acute abnormalities in the chest Dictated by: Dictated on workstation # [id number]
[2022-02-12 12:09] LABS: SMEAR SCAN COMMENT SLIDE REVIEWED
[2022-02-12 12:11] LABS: ALANINE AMINOTRANSFERASE 16 U/L (0-55); ALBUMIN 5.2 GM/DL (3.2-4.5); ALKALINE PHOSPHATASE 78 U/L (40-136); BILIRUBIN,TOTAL 2.1 MG/DL (0.1-1.0); BUN/CREATININE RATIO 12; CALCIUM 9.8 MG/DL (8.5-10.1); CARBON DIOXIDE 26 MMOL/L (21-32); CHLORIDE 95 MMOL/L (98-107); CREATININE SERUM 0.82 MG/DL (0.60-1.30); GFR ESTIMATED 106; GLUCOSE 92 MG/DL (70-105); MAGNESIUM 1.9 MG/DL (1.6-2.4); POTASSIUM 3.6 MMOL/L (3.6-5.0); SODIUM 138 MMOL/L (135-145); TOTAL PROTEIN 8.2 GM/DL (6.4-8.2)
[2022-02-12 12:25] VITALS: BP 133/85
== END 2022-02-12 12:25 | disposition home or self-care (01) ==
LOC: ER FS 11:31
DX: R07.81 Pleurodynia (principal)
CPT/HCPCS: 36415; 71046; 80053; 83735; 84484; 85025; 85379; 86141; 93005; 93041